=== PATIENT | female | born 1945 | race Caucasian/White ===

== ENCOUNTER 2017-11-20 15:45 | Inpatient (IN) | payer MEDICARE, MEDICAID ==
[2017-11-20 16:12] LABS: % BASOPHILS 1.1 % (0.0-2.0); % EOSINOPHILS 1.7 % (0.0-5.0); % LYMPHOCYTES 26.1 % (20.0-50.0); % NEUTROPHILS 64.1 % (40.0-80.0); BASOPHILE ABSOLUTE 0.1 Th/cumm (0-0.2); EOSINOPHILE ABSOLUTE 0.1 Th/cmm (0.1-0.4); HEMATOCRIT 38.7 % (41.0-60); HEMOGLOBIN 12.9 gm/dL (12-16); LYMPHOCYTE ABSOLUTE 1.6 Th/cmm (1.5-3.0); MEAN CELL VOLUME 78.5 fl (81-100); MEAN CORPUSCULAR HEMOGLOBIN 26.1 pg (27.0-31.0); MEAN CORPUSCULAR HGB CONC 33.2 pg (28.0-36.0); MEAN PLATELET VOLUME 8.9 fl; MONOCYTE ABSOLUTE 0.4 Th/cmm (0.3-1.0); NEUTROPHILE ABSOLUTE 3.9 Th/cmm (1.8-8.0); PLATELET COUNT 268 Th/cmm (150-400); RED BLOOD COUNT 4.94 Mil/cmm (3.80-5.20); WHITE BLOOD COUNT 6.1 Th/cmm (4.8-10.8)
--- NOTE | 2017-11-20 16:13 | ED Physician Chart ---
ED Chief Complaint/HPI - Patient Information Date Seen:: 11/20/17 Time Seen:: 15:50 Chief Complaint:: headache and diffuse myalgias History of Present Illness:: The last 2 weeks patient has been complaining of headaches and diffuse myalgia. No recent head trauma. Patient's also been more agitated lately and was sent here for medical clearance for admission to [facility]. Historian:: Family Member Review:: Nurse's Note Reviewed ED Review of Systems - Review of Systems General/Constitutional: No fever, No chills, No weight loss, No weakness, No diaphoresis, No edema, No loss of appetite Skin: No skin lesions, No rash, No bruising Head: No headache, No light-headedness Eyes: No loss of vision, No pain, No diplopia ENT: No earache, No nasal drainage, No sore throat, No tinnitus Neck: No neck pain, No swelling, No thyromegaly, No stiffness, No mass noted Cardio Vascular: No chest pain, No palpitations, No PND, No orthopnea, No edema Pulmonary: No SOB, No cough, No sputum, No wheezing GI: No nausea, No vomiting, No diarrhea, No pain, No melena, No hematochezia, No constipation, No hematemesis G/U: No dysuria, No frequency, No hematuria Musculoskeletal: Bone or joint pain Endocrine: No polyuria, No polydipsia Psychiatric: No prior psych history, No depression, No anxiety, No suicidal ideation Hematopoietic: No bruising, No lymphadenopathy Allergic/Immuno: No urticaria, No angioedema Neurological: No syncope, No focal symptoms, No weakness, No paresthesia, Headache, No seizure, No dizziness, No confusion, No vertigo ED Past Medical History - Past Medical History Past Medical History: HTN, DM Social History: Non Smoker, No Alcohol Surgical History: other (left knee) Medication: Reviewed ED Physical Exam - Physical Examination General/Constitutional: Awake, Well-developed, well-nourished, Alert, No distress, Non-toxic appearing, Ambulatory Head: Atraumatic Eyes: Lids, conjuctiva normal Other Eyes comments:: Right pupil irregular Skin: Nl inspection, No rash, No skin lesions, No ecchymosis, Well hydrated, No lymphadenopathy ENMT: External ears, nose nl, Nasal exam nl Other ENMT comments:: Edentulous Neck: Nontender, Full ROM w/o pain, No JVD, No nuchal rigidity, No bruit, No mass, No stridor Respiratory: Nl effort/Exclusion, Clear to Auscultation, No Wheeze/Rhonchi/Rales Cardio Vascular: RRR, No murmur, gallop, rubs, NL S1 S2 GI: No tenderness/rebounding/guarding, No organomegaly, No hernia, Normal BS's, Nondistended, No mass/bruits, No McBurney tenderness : No CVA tenderness Extremities: No tenderness or effusion, Full ROM, normal strength in all extremities, No edema, Normal digits & nails Neuro/Psych: No focal deficits Other Neuro/Psych comments:: Alert and apparently confused Misc: Normal back, No paraspinal tenderness ED Labs/Radiology/EKG Results - Lab Results Results: Laboratory Results - last 24 hr 11/20/17 11/20/17 16:05 16:05 WBC 6.1 RBC 4.94 Hgb 12.9 Hct 38.7 L MCV 78.5 L MCH 26.1 L MCHC Differential 33.2 RDW 14.0 Plt Count 268 MPV 8.9 Neutrophils % 64.1 Lymphocytes % 26.1 Monocytes % 7.0 Eosinophils % 1.7 Basophils % 1.1 Sodium 132 L Potassium 4.2 Chloride 96 L Carbon Dioxide 25.5 Anion Gap 14.7 BUN 12 Creatinine 0.6 Est GFR ( Amer) TNP Est GFR (Non-Af Amer) TNP BUN/Creatinine Ratio 20.0 Glucose 444 H Calcium 9.8 Total Bilirubin 0.3 AST 39 ALT 22 Alkaline Phosphatase 69 Total Protein 6.7 Albumin 4.4 Globulin 2.3 Albumin/Globulin Ratio 1.9 H Triglycerides 390 H Cholesterol 172 LDL Cholesterol Direct 91 HDL Cholesterol 53 - Radiology Results Results: CT head showed no acute disease - EKG Interpretations Rate & Rhythm: normal sinus rhythm with a rate of 85 Mineral: normal axis ED Septic Shock - . Is Septic Shock (SBP<90, OR Lactate>4 mmol\L) present?: No ED Reassessment (Disposition) - Reassessment Reassessment Condition:: Unchanged - Diagnosis Diagnosis:: Dementia with agitation; hyperglycemia; diabetes - Patient Disposition Admitted to:: [facility] Admitting Medical Physician:: Nagasamura S. Paras Admitting Psych Physician:: Maribeth Ellington Condition at Disposition:: Stable
[2017-11-20 16:41] LABS: ALB/GLOB RATIO 1.9 (1.0-1.8); ALBUMIN 4.4 gm/dL (3.7-5.3); ALKALINE PHOSPHATASE 69 U/L (34-104); ANION GAP 14.7 (7.0-16.0); BILIRUBIN,TOTAL 0.3 mg/dL (0.3-1.0); BUN - UREA NITROGEN 12 mg/dL (7-25); CALCIUM SERUM 9.8 mg/dL (8.6-10.3); CARBON DIOXIDE 25.5 mEq/L (21.0-31.0); CHLORIDE 96 mEq/L (98-107); CHOLESTEROL 172 mg/dL (<200); CREATININE - SERUM 0.6 mg/dL (0.6-1.2); GLUCOSE 444 mg/dL (70-105); HDL -HIGH DENSITY LIPOPROTEIN 53 mg/dL (23-92); POTASSIUM SERUM 4.2 mEq/L (3.5-5.1); SGOT 39 U/L (13-39); SGPT/ALT 22 U/L (7-52); SODIUM SERUM 132 mEq/L (136-145); TOTAL PROTEIN,SERUM 6.7 gm/dL (6.0-8.3); TRIGLYCERIDES 390 mg/dL (<150)
[2017-11-20] MEDS ORDERED: INSULIN HUMAN REGULAR 100 UNITS/ML UNIT ONE (16:51)
[2017-11-20] MEDS ORDERED: Sodium Chloride 0.9% 1,000 ML IV ONE (16:51)
[2017-11-20] MEDS ORDERED: INSULIN HUMAN REGULAR 100 UNITS/ML UNIT IV ONE (16:52)
[2017-11-20] MEDS ORDERED: INSULIN HUMAN REGULAR 100 UNITS/ML UNIT SUBQ ONE (16:52)
[2017-11-20 19:27] LABS: URINE SOURCE CLEAN C
[2017-11-20 19:33] LABS: URINE BILIRUBIN NEGATIVE (NEGATIVE); URINE BLOOD NEGATIVE (NEGATIVE); URINE GLUCOSE (UA) >=1000 mg/dL (NEGATIVE); URINE KETONE NEGATIVE (NEGATIVE); URINE LEUKOCYTE ESTERASE NEGATIVE (NEGATIVE); URINE NITRATE NEGATIVE (NEGATIVE); URINE PH 5.5 (4.6 - 8.0); URINE PROTEIN NEGATIVE (NEGATIVE); URINE UROBILINOGEN 0.2 E.U./dL (0.2 - 1.0)
[2017-11-20 19:50] LABS: URINE CLARITY CLEAR (CLEAR); URINE COLOR YELLOW
[2017-11-20 19:54] LABS: URINE BACTERIA NONE SEEN /hpf (NONE SEEN); URINE EPITHELIAL CELLS OCCASIONAL /lpf (FEW); URINE MICROSCOPIC INDICATED? YES; URINE RBC 0-2 /hpf (0-5); URINE WBC 0-2 /hpf (0-5)
[2017-11-20 21:52] LABS: A1C % 8.9 % (4.0-6.0)
[2017-11-20 22:26] VITALS: BP 151/95
[2017-11-20] MEDS ORDERED: Maalox 30 mL Cup PO PRN (22:35)
[2017-11-20] MEDS ORDERED: Magnesium Hydroxide (MOM) 30 mL UDC PO PRN (22:35)
[2017-11-21] MEDS: Multivitamin Tab PO SCH (08:37)
--- NOTE | 2017-11-21 08:41 | Diagnostic Imaging Report ---
CT scan of the brain without intravenous contrast HISTORY: Stroke, CVA Total DLP equals 518 CTDI equals 29.7 Axial sections were obtained from the base of the skull to the vertex. There is prominence/enlargement of the ventricular system size. Associated enlargement of cerebral sulci and subarachnoid cisterns. Findings are consistent with changes of generalized cerebral atrophy. No acute parenchymal abnormalities. No acute cerebral hemorrhage. Hypodensity is seen within the supratentorial white matter regions without mass effect. The findings may be associated with chronic small vessel ischemic disease. No extra-axial masses or abnormal fluid collections. Atherosclerotic calcification seen in the region of the vertebral arteries at the base of the skull. IMPRESSION: 1. No acute abnormalities 2. Cerebral atrophy 3. Supratentorial white matter changes that may reflect chronic small vessel ischemic disease 3. Atherosclerotic vascular changes
[2017-11-22] MEDS: Multivitamin Tab PO SCH (08:52)
--- NOTE | 2017-11-22 20:13 | History & Physical ---
ADMIT DATE: 11/20/2017 CHIEF COMPLAINT: Agitation. HISTORY OF PRESENT ILLNESS: This is a 72-year-old female, who was brought in by family members at the Emergency Room due to increase in agitation and confusion. No trauma noted. REVIEW OF SYSTEMS: GENERAL: This is a 72-year-old female that appears as stated, no fever, no chills. HEAD: No headache. No dizziness. EYES: No eye pain, no blurring of vision. NECK: No neck pain, no nuchal rigidity. CHEST: No chest pain. No palpitation. PULMONARY: No shortness of breath, no cough. GASTROINTESTINAL: No diarrhea. Positive for abdominal pain. MUSCULOSKELETAL: No muscle pain or joint pain. PAST MEDICAL HISTORY: Includes hypertension and diabetes. PAST SURGICAL HISTORY: Left knee surgery, unknown procedure. SOCIAL HISTORY: The patient lives with family prior to hospitalization. FAMILY HISTORY: Unremarkable. PHYSICAL EXAMINATION: VITAL SIGNS: Temperature 97.3, heart rate of 68, blood pressure of 151/92, respiration of 18, 94% on room air. GENERAL: This is a 72-year-old female, in no acute distress. HEENT: Head is atraumatic, normocephalic. Eyes: Bilateral conjunctivae are clear. Bilateral pupils are equally round and reactive. NECK: Supple. No JVD. CARDIOVASCULAR: S1 and S2, without murmur. PULMONARY: Clear to auscultation. GASTROINTESTINAL: Soft and nontender without guarding. Positive bowel sounds. MUSCULOSKELETAL: No clubbing. No cyanosis noted. ASSESSMENT: 1. Dementia. 2. Diabetes. 3. Osteoarthritis. PLAN: We will admit the patient to senior mental health unit. We will follow up with a psychiatrist to monitor the patient's condition and behavior. Treatment plans were discussed with the patient's nurse. Treatment plans were discussed with Dr. Crain. We will do medication reconciliation accordingly. JOB# [id number]
--- NOTE | 2017-11-22 22:41 | Psychosocial Evaluation ---
DATE OF SERVICE: PSYCHIATRIC INITIAL EVALUATION AND MENTAL STATUS EXAM AGE: 72. SEX: Female. PHYSICIAN: Maribeth Ellington MD, MPH CHIEF COMPLAINT: Agitation and confusion. HISTORY OF PRESENT ILLNESS: The patient is a 72-year-old female who was brought in to the hospital from home because of increased agitation and confusion. The patient has been having difficulty sleeping at night and has been having confusion and irritability. The patient also has been easily agitated. Chart reviewed and patient interviewed and discussed the patient's condition with the staff. After admission, the patient is not able to stop talking and the patient has been talking nonstop and did not sleep at all last night. The patient also has been in irritable mood and has been preoccupied with "my money." The patient continued to ask about money and not able to explain what exactly her concern about her money. The patient came in with no money, but she is paranoid, thinking that people has been stealing her money. The patient also has been anxious and has been nervous and in a depressed mood. She also is easily agitated and irritable. Also, the patient has been preoccupied about her money and her thought processes has been circumstantial with flight of ideas. PAST PSYCHIATRIC HISTORY: The patient has history of what seems to be dementia and psychosis, but no actual treatment and no medications given to the patient. PAST MEDICAL HISTORY: The patient has diabetes mellitus, hypertension, hyperlipidemia and anemia. SOCIAL HISTORY: The patient lives with her family. The patient has 1 daughter and 1 son. No known alcohol or drug use. ALLERGIES: No known allergies. MENTAL STATUS EXAMINATION: The patient appears her stated age. Disheveled. Hyperverbal and talking nonstop during my interview. The patient is also preoccupied with her money and she continuously asking about her money. The patient did not answer question regarding hallucinations or delusions, but seems to be paranoid and delusional, especially when talking about money. The patient denied thoughts to suicide or homicide. The patient is alert and oriented to the situation, but not to the date or time or place. Impaired immediate and recent memory, but intact remote memory and she remembered her date. Poor insight and poor judgment. She seems to be of average intelligence based on her verbal ability. ASSESSMENT: PRIMARY DIAGNOSIS: Unspecified psychosis. SECONDARY DIAGNOSES: Dementia, moderate to severe, with psychotic features. TREATMENT PLAN: We will monitor the patient's behavior and condition closely. We will start the patient on Abilify and we will adjust the dose. Also, we will work on behavioral modification and evaluate the severity of the patient's dementia. Also, we will check with family in regard to discharge plans and any possible placement issue. ESTIMATED LENGTH OF STAY: 5-7 days. THE PATIENT'S STRENGTHS AND WEAKNESSES: The patient has supportive family and she seems to be in relatively fair health. Weakness is her psychosis and agitation. AFTER DISCHARGE PLAN: Outpatient treatment and followup. We will continue as an outpatient and placement depends on discharge plans. CRITERIA FOR DISCHARGE: The patient will be less agitated and less irritable and will stabilize psychotropic medications and will establish outpatient treatment plans. JOB# [id number]
--- NOTE | 2017-11-22 23:22 | Progress Notes ---
DATE: 11/22/2017 SUBJECTIVE: The patient is currently in the hospital, seen today 11/22/2017, under the care of Dr. Ellington. The patient noted to be hyperverbal, wandering, not sleeping, agitated, difficult to redirect. The patient has apparently been complaining of headaches, diffuse myalgia, more agitated as of late, unable to be cared for at a lower level of care. Staff noting a very poor sleep, wandering preoccupied, focused on losing money, labile, confused at times. Medications were noted including doses and frequencies. ASSESSMENT: The patient remains symptomatic, confused, wandering behaviors. PLAN: We will continue to monitor. We will adjust her medications, address insomnia. Given her ongoing symptoms, there are ongoing safety concerns, history of agitation as well. She is currently in the hospital. JOB# [id number]
[2017-11-23] MEDS: INSULIN ASPART SLIDING SCALE 100 UNITS/ML UNIT SUBQ SCH ×5 (07:30→20:22)
--- NOTE | 2017-11-23 07:40 | Progress Notes ---
DATE: 11/23/2017 SUBJECTIVE: The patient noted to be yelling, verbal, screaming at me, noted to be in a Autumn chair, stating "The people do not know nothing" noted to be more agitated as well, unable to be cared for lower level of care. Staff noting she wanders at times, highly preoccupied, also as noted fairly poor sleep, still focused on losing money, labile. Daughter is involved. The patient is coming from an outside facility and diagnosed with dementia. ASSESSMENT: The patient remains confused, yelling, screaming, at times, argumentative, wandering behaviors. PLAN: We will continue to monitor. We will titrate and adjust medications. The patient may need a medication adjustment to address for sleep. [facility]# [id number]
[2017-11-23] MEDS: Multivitamin Tab PO SCH (09:19)
--- NOTE | 2017-11-23 12:02 | General Progress Note ---
Subjective - Review of Systems Events since last encounter: patient awake confused irritable Objective - Results Result Diagrams: 11/20/17 16:05 11/20/17 16:05 Recent Labs: Laboratory Last Values WBC 6.1 Th/cmm (4.8-10.8) 11/20/17 16:05 RBC 4.94 Mil/cmm (3.80-5.20) 11/20/17 16:05 Hgb 12.9 gm/dL (12-16) 11/20/17 16:05 Hct 38.7 % (41.0-60) L 11/20/17 16:05 MCV 78.5 fl (81-100) L 11/20/17 16:05 MCH 26.1 pg (27.0-31.0) L 11/20/17 16:05 MCHC Differential 33.2 pg (28.0-36.0) 11/20/17 16:05 RDW 14.0 % (11.5-20.0) 11/20/17 16:05 Plt Count 268 Th/cmm (150-400) 11/20/17 16:05 MPV 8.9 fl 11/20/17 16:05 Neutrophils % 64.1 % (40.0-80.0) 11/20/17 16:05 Lymphocytes % 26.1 % (20.0-50.0) 11/20/17 16:05 Monocytes % 7.0 % (2.0-10.0) 11/20/17 16:05 Eosinophils % 1.7 % (0.0-5.0) 11/20/17 16:05 Basophils % 1.1 % (0.0-2.0) 11/20/17 16:05 Sodium 132 mEq/L (136-145) L 11/20/17 16:05 Potassium 4.2 mEq/L (3.5-5.1) 11/20/17 16:05 Chloride 96 mEq/L (98-107) L 11/20/17 16:05 Carbon Dioxide 25.5 mEq/L (21.0-31.0) 11/20/17 16:05 Anion Gap 14.7 (7.0-16.0) 11/20/17 16:05 BUN 12 mg/dL (7-25) 11/20/17 16:05 Creatinine 0.6 mg/dL (0.6-1.2) 11/20/17 16:05 Est GFR ( Amer) TNP 11/20/17 16:05 Est GFR (Non-Af Amer) TNP 11/20/17 16:05 BUN/Creatinine Ratio 20.0 11/20/17 16:05 Glucose 444 mg/dL (70-105) H 11/20/17 16:05 POC Glucose 180 MG/DL (70 - 105) H 11/23/17 11:31 Hemoglobin A1c % 8.9 % (4.0-6.0) H 11/20/17 16:05 Calcium 9.8 mg/dL (8.6-10.3) 11/20/17 16:05 Total Bilirubin 0.3 mg/dL (0.3-1.0) 11/20/17 16:05 AST 39 U/L (13-39) 11/20/17 16:05 ALT 22 U/L (7-52) 11/20/17 16:05 Alkaline Phosphatase 69 U/L (34-104) 11/20/17 16:05 Total Protein 6.7 gm/dL (6.0-8.3) 11/20/17 16:05 Albumin 4.4 gm/dL (3.7-5.3) 11/20/17 16:05 Globulin 2.3 gm/dL 11/20/17 16:05 Albumin/Globulin Ratio 1.9 (1.0-1.8) H 11/20/17 16:05 Triglycerides 390 mg/dL (<150) H 11/20/17 16:05 Cholesterol 172 mg/dL (<200) 11/20/17 16:05 LDL Cholesterol Direct 91 mg/dL (75-193) 11/20/17 16:05 HDL Cholesterol 53 mg/dL (23-92) 11/20/17 16:05 TSH 0.72 uIU/ml (0.34-5.60) 11/20/17 16:05 Urine Source CLEAN C 11/20/17 18:04 Urine Color YELLOW 11/20/17 18:04 Urine Clarity CLEAR (CLEAR) 11/20/17 18:04 Urine pH 5.5 (4.6 - 8.0) 11/20/17 18:04 Ur Specific [place] 1.015 (1.005-1.030) 11/20/17 18:04 Urine Protein NEGATIVE mg/dL (NEGATIVE) 11/20/17 18:04 Urine Glucose (UA) >=1000 mg/dL (NEGATIVE) H 11/20/17 18:04 Urine Ketones NEGATIVE mg/dL (NEGATIVE) 11/20/17 18:04 Urine Blood NEGATIVE (NEGATIVE) 11/20/17 18:04 Urine Nitrate NEGATIVE (NEGATIVE) 11/20/17 18:04 Urine Bilirubin NEGATIVE (NEGATIVE) 11/20/17 18:04 Urine Urobilinogen 0.2 E.U./dL (0.2 - 1.0) 11/20/17 18:04 Ur Leukocyte Esterase NEGATIVE (NEGATIVE) 11/20/17 18:04 Urine RBC 0-2 /hpf (0-5) 11/20/17 18:04 Urine WBC 0-2 /hpf (0-5) 11/20/17 18:04 Ur Epithelial Cells OCCASIONAL /lpf (FEW) 11/20/17 18:04 Urine Bacteria NONE SEEN /hpf (NONE SEEN) 11/20/17 18:04 RPR NONREACTIVE (NONREACTIVE) 11/20/17 16:05 - Physical Exam Vitals and I&O: Vital Signs Temp 97.6 F 11/23/17 05:39 Pulse 84 11/23/17 05:39 Resp 18 11/23/17 05:39 BP 146/82 11/23/17 05:39 Pulse Ox 95 11/23/17 05:39 Intake & Output 11/22/17 11/23/17 11/23/17 18:59 06:59 18:59 Intake Total 850 Balance 850 Intake: Oral 850 Other: # Voids 3 # Bowel Movements 1 Active Medications: Current Medications Acetaminophen (Tylenol) 650 mg PO Q4HR PRN PRN Reason: Mild Pain / Temp above 100 Stop: 01/19/18 22:34 Al Hydrox/Mg Hydrox/Simethicone (Maalox) 30 ml PO Q4HR PRN PRN Reason: GI DISTRESS Stop: 01/19/18 22:34 Aripiprazole (Abilify) 2 mg PO DAILY PAUL; Protocol Stop: 01/20/18 08:59 Last Admin: 11/23/17 09:21 Dose: 2 mg Glipizide (Glucotrol) 5 mg PO BID [facility] Stop: 01/20/18 08:59 Last Admin: 11/23/17 09:20 Dose: 5 mg Insulin Aspart (Novolog Insulin Sliding Scale) 0 units SUBQ ACHS PAUL; Protocol Stop: 01/22/18 07:29 Last Admin: 11/23/17 11:46 Dose: 2 units Lorazepam (Ativan) 0.5 mg PO Q4HR PRN; Protocol PRN Reason: Anxiety Stop: 12/20/17 19:29 Last Admin: 11/22/17 18:38 Dose: 0.5 mg Magnesium Hydroxide (Milk Of Magnesia) 30 ml PO HS PRN PRN Reason: Constipation Metformin HCl (Glucophage) 500 mg PO BID PAUL Stop: 01/20/18 08:59 Last Admin: 11/23/17 09:19 Dose: 500 mg Multivitamins/Vitamin C (Theragran) 1 tab PO DAILY PAUL Stop: 01/20/18 08:59 Last Admin: 11/23/17 09:19 Dose: 1 tab Trazodone HCl (Desyrel) 75 mg PO HS PRN; Protocol PRN Reason: Insomnia Stop: 01/21/18 20:59 General: No acute distress HEENT: Atraumatic, PERRLA Neck: Supple, JVD Cardiovascular: Regular rate, Normal S1, Normal S2 Assessment/Plan - Plan Plan: as per order sheet Nutritional Asmnt/Malnutr-PDOC - Dietary Evaluation Malnutrition Findings (Please click <Entered> for more info): Nutritional Asmnt/Malnutrition Start: 11/21/17 13: 59 Text: Status: Complete Freq: Protocol: Document 11/21/17 13:59 LCHENG (Rec: 11/21/17 14:16 LCHENG [id number]) Nutritional Asmnt/Malnutrition Patient General Information Nutritional Screening High Risk Diagnosis dementai with agitation Pertinent Medical Hx/Surgical Hx HTN, DM, left knee surgery Subjective Information BS 444 at admission noted. Pt seen walking in dining room, confused. Not able to provide nutrition education d/t pt mental status. Per POULTRY HUSBANDMAN, pt consumed 60% of breakfast this morning. Current Diet Order/ Nutrition Support CCHO Pertinent Medications glucotrol, glucophage, theragran Pertinent Labs 11/20 Na 132, Cl 96, glucose 444 , POC 167-368, A1c 8.9 Nutritional Hx/Data Height 1.5 m Height (Calculated Centimeters) 149.9 Current Weight (lbs) 54.431 kg Weight (Calculated Kilograms) 54.4 Weight (Calculated Grams) 18160.1 [place] Body Weight 98 Body Mass Index (BMI) 24.2 Weight Status Approriate GI Symptoms GI Symptoms None Last BM not indicated Difficult in: None Skin Integrity/Comment: intact Estimated Nutritional Goals BEE in Kcals: Using Current wt Calories/Kcals/Kg 25-30 Kcals Calculated 1246-1456 Protein: Using Current wt Protein g/k-1.2 Protein Calculated 55-66 Fluid: ml 1375-1650ml (1ml/kcal) Nutritional Problem 1. Problem Problem altered nutrition related labs Etiology hx of Dm Signs/Symptoms: glucose 444, POC 167-368, A1c 8.9 Malnutrition Alert Is there a minimum of two criteria No selected? Query Text:Check all the applicable criteria. A minimum of two criteria are recommended for diagnosis of either severe or non-severe malnutrition. Malnutrition Related to Morbid Obesity Malnutrition related to morbid obesity No Intervention/Recommendation Comments 1. Continue with [facility] diet as ordered. 2. Monitor PO intake, wt, labs and skin integrity 3. F/U as moderate risk in 3-5 days, 11/24-11/26 Expected Outcomes/Goals Expected Outcomes/Goals 1. PO intake to meet at least 75% of nutritional needs. 2. Wt stability, skin to remain intact, labs to approach WNL.
[2017-11-24] MEDS: INSULIN ASPART SLIDING SCALE 100 UNITS/ML UNIT SUBQ SCH ×4 (06:41→20:17)
[2017-11-24] MEDS: Multivitamin Tab PO SCH (08:32)
--- NOTE | 2017-11-24 15:00 | General Progress Note ---
Subjective - Review of Systems Events since last encounter: patient still confused agitated at times no signs of pain Objective - Results Result Diagrams: 11/20/17 16:05 11/20/17 16:05 Recent Labs: Laboratory Last Values WBC 6.1 Th/cmm (4.8-10.8) 11/20/17 16:05 RBC 4.94 Mil/cmm (3.80-5.20) 11/20/17 16:05 Hgb 12.9 gm/dL (12-16) 11/20/17 16:05 Hct 38.7 % (41.0-60) L 11/20/17 16:05 MCV 78.5 fl (81-100) L 11/20/17 16:05 MCH 26.1 pg (27.0-31.0) L 11/20/17 16:05 MCHC Differential 33.2 pg (28.0-36.0) 11/20/17 16:05 RDW 14.0 % (11.5-20.0) 11/20/17 16:05 Plt Count 268 Th/cmm (150-400) 11/20/17 16:05 MPV 8.9 fl 11/20/17 16:05 Neutrophils % 64.1 % (40.0-80.0) 11/20/17 16:05 Lymphocytes % 26.1 % (20.0-50.0) 11/20/17 16:05 Monocytes % 7.0 % (2.0-10.0) 11/20/17 16:05 Eosinophils % 1.7 % (0.0-5.0) 11/20/17 16:05 Basophils % 1.1 % (0.0-2.0) 11/20/17 16:05 Sodium 132 mEq/L (136-145) L 11/20/17 16:05 Potassium 4.2 mEq/L (3.5-5.1) 11/20/17 16:05 Chloride 96 mEq/L (98-107) L 11/20/17 16:05 Carbon Dioxide 25.5 mEq/L (21.0-31.0) 11/20/17 16:05 Anion Gap 14.7 (7.0-16.0) 11/20/17 16:05 BUN 12 mg/dL (7-25) 11/20/17 16:05 Creatinine 0.6 mg/dL (0.6-1.2) 11/20/17 16:05 Est GFR ( Amer) TNP 11/20/17 16:05 Est GFR (Non-Af Amer) TNP 11/20/17 16:05 BUN/Creatinine Ratio 20.0 11/20/17 16:05 Glucose 444 mg/dL (70-105) H 11/20/17 16:05 POC Glucose 203 MG/DL (70 - 105) H 11/24/17 12:00 Hemoglobin A1c % 8.9 % (4.0-6.0) H 11/20/17 16:05 Calcium 9.8 mg/dL (8.6-10.3) 11/20/17 16:05 Total Bilirubin 0.3 mg/dL (0.3-1.0) 11/20/17 16:05 AST 39 U/L (13-39) 11/20/17 16:05 ALT 22 U/L (7-52) 11/20/17 16:05 Alkaline Phosphatase 69 U/L (34-104) 11/20/17 16:05 Total Protein 6.7 gm/dL (6.0-8.3) 11/20/17 16:05 Albumin 4.4 gm/dL (3.7-5.3) 11/20/17 16:05 Globulin 2.3 gm/dL 11/20/17 16:05 Albumin/Globulin Ratio 1.9 (1.0-1.8) H 11/20/17 16:05 Triglycerides 390 mg/dL (<150) H 11/20/17 16:05 Cholesterol 172 mg/dL (<200) 11/20/17 16:05 LDL Cholesterol Direct 91 mg/dL (75-193) 11/20/17 16:05 HDL Cholesterol 53 mg/dL (23-92) 11/20/17 16:05 TSH 0.72 uIU/ml (0.34-5.60) 11/20/17 16:05 Urine Source CLEAN C 11/20/17 18:04 Urine Color YELLOW 11/20/17 18:04 Urine Clarity CLEAR (CLEAR) 11/20/17 18:04 Urine pH 5.5 (4.6 - 8.0) 11/20/17 18:04 Ur Specific [place] 1.015 (1.005-1.030) 11/20/17 18:04 Urine Protein NEGATIVE mg/dL (NEGATIVE) 11/20/17 18:04 Urine Glucose (UA) >=1000 mg/dL (NEGATIVE) H 11/20/17 18:04 Urine Ketones NEGATIVE mg/dL (NEGATIVE) 11/20/17 18:04 Urine Blood NEGATIVE (NEGATIVE) 11/20/17 18:04 Urine Nitrate NEGATIVE (NEGATIVE) 11/20/17 18:04 Urine Bilirubin NEGATIVE (NEGATIVE) 11/20/17 18:04 Urine Urobilinogen 0.2 E.U./dL (0.2 - 1.0) 11/20/17 18:04 Ur Leukocyte Esterase NEGATIVE (NEGATIVE) 11/20/17 18:04 Urine RBC 0-2 /hpf (0-5) 11/20/17 18:04 Urine WBC 0-2 /hpf (0-5) 11/20/17 18:04 Ur Epithelial Cells OCCASIONAL /lpf (FEW) 11/20/17 18:04 Urine Bacteria NONE SEEN /hpf (NONE SEEN) 11/20/17 18:04 RPR NONREACTIVE (NONREACTIVE) 11/20/17 16:05 - Physical Exam Vitals and I&O: Vital Signs Temp 97.8 F 11/24/17 06:23 Pulse 90 11/24/17 06:23 Resp 19 11/24/17 08:00 BP 142/76 11/24/17 06:23 Pulse Ox 97 11/24/17 06:23 Intake & Output 11/23/17 11/24/17 11/24/17 18:59 06:59 18:59 Intake Total 900 300 Balance 900 300 Intake: Oral 900 300 Other: # Voids 3 1 # Bowel Movements 0 Active Medications: Current Medications Acetaminophen (Tylenol) 650 mg PO Q4HR PRN PRN Reason: Mild Pain / Temp above 100 Stop: 01/19/18 22:34 Al Hydrox/Mg Hydrox/Simethicone (Maalox) 30 ml PO Q4HR PRN PRN Reason: GI DISTRESS Stop: 01/19/18 22:34 Aripiprazole (Abilify) 2 mg PO DAILY [facility]; Protocol Stop: 01/20/18 08:59 Last Admin: 11/24/17 08:32 Dose: 2 mg Glipizide (Glucotrol) 5 mg PO BID [facility] Stop: 01/20/18 08:59 Last Admin: 11/24/17 08:32 Dose: 5 mg Insulin Aspart (Novolog Insulin Sliding Scale) 0 units SUBQ ACHS [facility]; Protocol Stop: 01/22/18 07:29 Last Admin: 11/24/17 12:43 Dose: 4 units Lorazepam (Ativan) 0.5 mg PO Q4HR PRN; Protocol PRN Reason: Anxiety Stop: 12/20/17 19:29 Last Admin: 11/23/17 14:43 Dose: 0.5 mg Magnesium Hydroxide (Milk Of Magnesia) 30 ml PO HS PRN PRN Reason: Constipation Metformin HCl (Glucophage) 500 mg PO BID [facility] Stop: 01/20/18 08:59 Last Admin: 11/24/17 08:32 Dose: 500 mg Multivitamins/Vitamin C (Theragran) 1 tab PO DAILY [facility] Stop: 01/20/18 08:59 Last Admin: 11/24/17 08:32 Dose: 1 tab Trazodone HCl (Desyrel) 75 mg PO HS PRN; Protocol PRN Reason: Insomnia Stop: 01/21/18 20:59 Last Admin: 11/24/17 00:35 Dose: 75 mg General: No acute distress HEENT: Atraumatic, PERRLA Neck: Supple, JVD Cardiovascular: Regular rate, Normal S1, Normal S2 Assessment/Plan - Plan Plan: as per order sheet Nutritional Asmnt/Malnutr-PDOC - Dietary Evaluation Malnutrition Findings (Please click <Entered> for more info): Nutritional Asmnt/Malnutrition Start: 11/21/17 13: 59 Text: Status: Complete Freq: Protocol: Document 11/21/17 13:59 LCHENG (Rec: 11/21/17 14:16 [email or web address] [email or web address]) Nutritional Asmnt/Malnutrition Patient General Information Nutritional Screening High Risk Diagnosis dementai with agitation Pertinent Medical Hx/Surgical Hx HTN, DM, left knee surgery Subjective Information BS 444 at admission noted. Pt seen walking in dining room, confused. Not able to provide nutrition education d/t pt mental status. Per SUBSCRIPTION CLERK, pt consumed 60% of breakfast this morning. Current Diet Order/ Nutrition Support CCHO Pertinent Medications glucotrol, glucophage, theragran Pertinent Labs 11/20 Na 132, Cl 96, glucose 444 , POC 167-368, A1c 8.9 Nutritional Hx/Data Height 1.5 m Height (Calculated Centimeters) 149.9 Current Weight (lbs) 54.431 kg Weight (Calculated Kilograms) 54.4 Weight (Calculated Grams) 94649.1 [place] Body Weight 98 Body Mass Index (BMI) 24.2 Weight Status Approriate GI Symptoms GI Symptoms None Last BM not indicated Difficult in: None Skin Integrity/Comment: intact Estimated Nutritional Goals BEE in Kcals: Using Current wt Calories/Kcals/Kg 25-30 Kcals Calculated 0238-1372 Protein: Using Current wt Protein g/k-1.2 Protein Calculated 55-66 Fluid: ml 1375-1650ml (1ml/kcal) Nutritional Problem 1. Problem Problem altered nutrition related labs Etiology hx of Dm Signs/Symptoms: glucose 444, POC 167-368, A1c 8.9 Malnutrition Alert Is there a minimum of two criteria No selected? Query Text:Check all the applicable criteria. A minimum of two criteria are recommended for diagnosis of either severe or non-severe malnutrition. Malnutrition Related to Morbid Obesity Malnutrition related to morbid obesity No Intervention/Recommendation Comments 1. Continue with [facility] diet as ordered. 2. Monitor PO intake, wt, labs and skin integrity 3. F/U as moderate risk in 3-5 days, 11/24-11/26 Expected Outcomes/Goals Expected Outcomes/Goals 1. PO intake to meet at least 75% of nutritional needs. 2. Wt stability, skin to remain intact, labs to approach WNL.
--- NOTE | 2017-11-24 21:51 | Progress Notes ---
DATE: 11/24/[address] Ellington. SUBJECTIVE: Case was discussed with staff of the patient, reviewed records. This is a 72-year-old female, who was admitted on 11/20/2017 because of agitation and confusion. She has been confused, agitated, having difficulty sleeping at night, has been having confusion and irritability, unable to stop talking. Upon admission, she was manic, paranoid thinking people have been stealing her money, very anxious with a history of what seems to be like dementia and psychosis. The patient continues to be unpredictable, impulsive, and needing redirection. She was started on Abilify 2 mg daily and trazodone 75 mg at bedtime with no side effects, no sedation, no nausea, and no extrapyramidal symptoms. We will continue to work with the patient in group therapy, milieu therapy, and adjust the medications as needed. [facility]# [phone] [id number]
[2017-11-25] MEDS: INSULIN ASPART SLIDING SCALE 100 UNITS/ML UNIT SUBQ SCH ×4 (06:45→20:26)
[2017-11-25] MEDS: Multivitamin Tab PO SCH (10:05)
--- NOTE | 2017-11-25 11:41 | Internal Medicine Prog Note ---
Internal Medicine Subjective - Subjective Service Date: 11/25/17 Patient seen and examined:: with staff Patient is:: awake Per staff patient has:: no adverse event, tolerating meds Internal Medicine Objective - Results Result Diagrams: 11/20/17 16:05 11/20/17 16:05 Recent Labs: Laboratory Last Values WBC 6.1 Th/cmm (4.8-10.8) 11/20/17 16:05 RBC 4.94 Mil/cmm (3.80-5.20) 11/20/17 16:05 Hgb 12.9 gm/dL (12-16) 11/20/17 16:05 Hct 38.7 % (41.0-60) L 11/20/17 16:05 MCV 78.5 fl (81-100) L 11/20/17 16:05 MCH 26.1 pg (27.0-31.0) L 11/20/17 16:05 MCHC Differential 33.2 pg (28.0-36.0) 11/20/17 16:05 RDW 14.0 % (11.5-20.0) 11/20/17 16:05 Plt Count 268 Th/cmm (150-400) 11/20/17 16:05 MPV 8.9 fl 11/20/17 16:05 Neutrophils % 64.1 % (40.0-80.0) 11/20/17 16:05 Lymphocytes % 26.1 % (20.0-50.0) 11/20/17 16:05 Monocytes % 7.0 % (2.0-10.0) 11/20/17 16:05 Eosinophils % 1.7 % (0.0-5.0) 11/20/17 16:05 Basophils % 1.1 % (0.0-2.0) 11/20/17 16:05 Sodium 132 mEq/L (136-145) L 11/20/17 16:05 Potassium 4.2 mEq/L (3.5-5.1) 11/20/17 16:05 Chloride 96 mEq/L (98-107) L 11/20/17 16:05 Carbon Dioxide 25.5 mEq/L (21.0-31.0) 11/20/17 16:05 Anion Gap 14.7 (7.0-16.0) 11/20/17 16:05 BUN 12 mg/dL (7-25) 11/20/17 16:05 Creatinine 0.6 mg/dL (0.6-1.2) 11/20/17 16:05 Est GFR ( Amer) TNP 11/20/17 16:05 Est GFR (Non-Af Amer) TNP 11/20/17 16:05 BUN/Creatinine Ratio 20.0 11/20/17 16:05 Glucose 444 mg/dL (70-105) H 11/20/17 16:05 POC Glucose 250 MG/DL (70 - 105) H 11/24/17 19:56 Hemoglobin A1c % 8.9 % (4.0-6.0) H 11/20/17 16:05 Calcium 9.8 mg/dL (8.6-10.3) 11/20/17 16:05 Total Bilirubin 0.3 mg/dL (0.3-1.0) 11/20/17 16:05 AST 39 U/L (13-39) 11/20/17 16:05 ALT 22 U/L (7-52) 11/20/17 16:05 Alkaline Phosphatase 69 U/L (34-104) 11/20/17 16:05 Total Protein 6.7 gm/dL (6.0-8.3) 11/20/17 16:05 Albumin 4.4 gm/dL (3.7-5.3) 11/20/17 16:05 Globulin 2.3 gm/dL 11/20/17 16:05 Albumin/Globulin Ratio 1.9 (1.0-1.8) H 11/20/17 16:05 Triglycerides 390 mg/dL (<150) H 11/20/17 16:05 Cholesterol 172 mg/dL (<200) 11/20/17 16:05 LDL Cholesterol Direct 91 mg/dL (75-193) 11/20/17 16:05 HDL Cholesterol 53 mg/dL (23-92) 11/20/17 16:05 TSH 0.72 uIU/ml (0.34-5.60) 11/20/17 16:05 Urine Source CLEAN C 11/20/17 18:04 Urine Color YELLOW 11/20/17 18:04 Urine Clarity CLEAR (CLEAR) 11/20/17 18:04 Urine pH 5.5 (4.6 - 8.0) 11/20/17 18:04 Ur Specific [place] 1.015 (1.005-1.030) 11/20/17 18:04 Urine Protein NEGATIVE mg/dL (NEGATIVE) 11/20/17 18:04 Urine Glucose (UA) >=1000 mg/dL (NEGATIVE) H 11/20/17 18:04 Urine Ketones NEGATIVE mg/dL (NEGATIVE) 11/20/17 18:04 Urine Blood NEGATIVE (NEGATIVE) 11/20/17 18:04 Urine Nitrate NEGATIVE (NEGATIVE) 11/20/17 18:04 Urine Bilirubin NEGATIVE (NEGATIVE) 11/20/17 18:04 Urine Urobilinogen 0.2 E.U./dL (0.2 - 1.0) 11/20/17 18:04 Ur Leukocyte Esterase NEGATIVE (NEGATIVE) 11/20/17 18:04 Urine RBC 0-2 /hpf (0-5) 11/20/17 18:04 Urine WBC 0-2 /hpf (0-5) 11/20/17 18:04 Ur Epithelial Cells OCCASIONAL /lpf (FEW) 11/20/17 18:04 Urine Bacteria NONE SEEN /hpf (NONE SEEN) 11/20/17 18:04 RPR NONREACTIVE (NONREACTIVE) 11/20/17 16:05 - Physical Exam Vitals and I&O: Vital Signs Temp 97.6 F 11/25/17 06:22 Pulse 85 11/25/17 06:22 Resp 16 11/25/17 06:22 BP 153/77 11/25/17 06:22 Pulse Ox 98 11/25/17 06:22 Intake & Output 11/24/17 11/25/17 11/25/17 18:59 06:59 18:59 Intake Total 1200 Balance 1200 Intake: Oral 1200 Other: # Voids 4 # Bowel Movements 2 Active Medications: Current Medications Acetaminophen (Tylenol) 650 mg PO Q4HR PRN PRN Reason: Mild Pain / Temp above 100 Stop: 01/19/18 22:34 Al Hydrox/Mg Hydrox/Simethicone (Maalox) 30 ml PO Q4HR PRN PRN Reason: GI DISTRESS Stop: 01/19/18 22:34 Aripiprazole (Abilify) 2 mg PO DAILY [facility]; Protocol Stop: 01/20/18 08:59 Last Admin: 11/25/17 10:05 Dose: 2 mg Glipizide (Glucotrol) 5 mg PO BID [facility] Stop: 01/20/18 08:59 Last Admin: 11/25/17 10:05 Dose: 5 mg Insulin Aspart (Novolog Insulin Sliding Scale) 0 units SUBQ ACHS [facility]; Protocol Stop: 01/22/18 07:29 Last Admin: 11/25/17 06:45 Dose: 2 units Lorazepam (Ativan) 0.5 mg PO Q4HR PRN; Protocol PRN Reason: Anxiety Stop: 12/20/17 19:29 Last Admin: 11/24/17 19:46 Dose: 0.5 mg Magnesium Hydroxide (Milk Of Magnesia) 30 ml PO HS PRN PRN Reason: Constipation Metformin HCl (Glucophage) 500 mg PO BID [facility] Stop: 01/20/18 08:59 Last Admin: 11/25/17 10:05 Dose: 500 mg Multivitamins/Vitamin C (Theragran) 1 tab PO DAILY [facility] Stop: 01/20/18 08:59 Last Admin: 11/25/17 10:05 Dose: 1 tab Trazodone HCl (Desyrel) 75 mg PO HS PRN; Protocol PRN Reason: Insomnia Stop: 01/21/18 20:59 Last Admin: 11/24/17 00:35 Dose: 75 mg General: alert HEENT: NC/AT, PERRLA Neck: Supple Lungs: CTAB Internal Medicine Assmt/Plan - Assessment Assessment: dementia dm oa - Plan Plan: monitor glucose cpm Nutritional Asmnt/Malnutr-PDOC - Dietary Evaluation Malnutrition Findings (Please click <Entered> for more info): Nutritional Asmnt/Malnutrition Start: 11/21/17 13: 59 Text: Status: Complete Freq: Protocol: Document 11/21/17 13:59 LCHENG (Rec: 11/21/17 14:16 LCHENG [email or web address]) Nutritional Asmnt/Malnutrition Patient General Information Nutritional Screening High Risk Diagnosis dementai with agitation Pertinent Medical Hx/Surgical Hx HTN, DM, left knee surgery Subjective Information BS 444 at admission noted. Pt seen walking in dining room, confused. Not able to provide nutrition education d/t pt mental status. Per SUPERVISOR MICROWAVE, pt consumed 60% of breakfast this morning. Current Diet Order/ Nutrition Support CCHO Pertinent Medications glucotrol, glucophage, theragran Pertinent Labs 7/5 Na 132, Cl 96, glucose 444 , POC 167-368, A1c 8.9 Nutritional Hx/Data Height 4 ft 11 in Height (Calculated Centimeters) 149.9 Current Weight (lbs) 120 lb Weight (Calculated Kilograms) 54.4 Weight (Calculated Grams) 29348.1 [place] Body Weight 98 Body Mass Index (BMI) 24.2 Weight Status Approriate GI Symptoms GI Symptoms None Last BM not indicated Difficult in: None Skin Integrity/Comment: intact Estimated Nutritional Goals BEE in Kcals: Using Current wt Calories/Kcals/Kg 25-30 Kcals Calculated 6456-7384 Protein: Using Current wt Protein g/k-1.2 Protein Calculated 55-66 Fluid: ml 1375-1650ml (1ml/kcal) Nutritional Problem 1. Problem Problem altered nutrition related labs Etiology hx of Dm Signs/Symptoms: glucose 444, POC 167-368, A1c 8.9 Malnutrition Alert Is there a minimum of two criteria No selected? Query Text:Check all the applicable criteria. A minimum of two criteria are recommended for diagnosis of either severe or non-severe malnutrition. Malnutrition Related to Morbid Obesity Malnutrition related to morbid obesity No Intervention/Recommendation Comments 1. Continue with [facility] diet as ordered. 2. Monitor PO intake, wt, labs and skin integrity 3. F/U as moderate risk in 3-5 days, 11/24-11/26 Expected Outcomes/Goals Expected Outcomes/Goals 1. PO intake to meet at least 75% of nutritional needs. 2. Wt stability, skin to remain intact, labs to approach WNL.
--- NOTE | 2017-11-25 22:43 | Progress Notes ---
DATE: 11/25/2017 Case was discussed with staff of the patient, reviewed records. The patient continues to be confused, easily agitated, continues to be unpredictable, impulsive, and paranoid at times. Continues to have poor insight. Continues to need redirection. She is compliant with the medication with no side effects, no sedation, no nausea, and no extrapyramidal symptoms. We will continue to work with the patient in group therapy, milieu therapy, and adjust medication as needed. She is sleeping better and eating better. JOB# [id number]
[2017-11-26] MEDS: INSULIN ASPART SLIDING SCALE 100 UNITS/ML UNIT SUBQ SCH ×4 (06:32→21:32)
[2017-11-26] MEDS ORDERED: Haloperidol Lactate 5 mg/mL 1mL Vial ONE (08:42)
[2017-11-26] MEDS ORDERED: Haloperidol Lactate 5 mg/mL 1mL Vial IM ONE (08:53)
[2017-11-26] MEDS: Multivitamin Tab PO SCH (09:01)
--- NOTE | 2017-11-26 13:12 | General Progress Note ---
Subjective - Review of Systems Events since last encounter: confused easily agitated Objective - Results Result Diagrams: 11/20/17 16:05 11/20/17 16:05 Recent Labs: Laboratory Last Values WBC 6.1 Th/cmm (4.8-10.8) 11/20/17 16:05 RBC 4.94 Mil/cmm (3.80-5.20) 11/20/17 16:05 Hgb 12.9 gm/dL (12-16) 11/20/17 16:05 Hct 38.7 % (41.0-60) L 11/20/17 16:05 MCV 78.5 fl (81-100) L 11/20/17 16:05 MCH 26.1 pg (27.0-31.0) L 11/20/17 16:05 MCHC Differential 33.2 pg (28.0-36.0) 11/20/17 16:05 RDW 14.0 % (11.5-20.0) 11/20/17 16:05 Plt Count 268 Th/cmm (150-400) 11/20/17 16:05 MPV 8.9 fl 11/20/17 16:05 Neutrophils % 64.1 % (40.0-80.0) 11/20/17 16:05 Lymphocytes % 26.1 % (20.0-50.0) 11/20/17 16:05 Monocytes % 7.0 % (2.0-10.0) 11/20/17 16:05 Eosinophils % 1.7 % (0.0-5.0) 11/20/17 16:05 Basophils % 1.1 % (0.0-2.0) 11/20/17 16:05 Sodium 132 mEq/L (136-145) L 11/20/17 16:05 Potassium 4.2 mEq/L (3.5-5.1) 11/20/17 16:05 Chloride 96 mEq/L (98-107) L 11/20/17 16:05 Carbon Dioxide 25.5 mEq/L (21.0-31.0) 11/20/17 16:05 Anion Gap 14.7 (7.0-16.0) 11/20/17 16:05 BUN 12 mg/dL (7-25) 11/20/17 16:05 Creatinine 0.6 mg/dL (0.6-1.2) 11/20/17 16:05 Est GFR ( Amer) TNP 11/20/17 16:05 Est GFR (Non-Af Amer) TNP 11/20/17 16:05 BUN/Creatinine Ratio 20.0 11/20/17 16:05 Glucose 444 mg/dL (70-105) H 11/20/17 16:05 POC Glucose 219 MG/DL (70 - 105) H 11/26/17 11:41 Hemoglobin A1c % 8.9 % (4.0-6.0) H 11/20/17 16:05 Calcium 9.8 mg/dL (8.6-10.3) 11/20/17 16:05 Total Bilirubin 0.3 mg/dL (0.3-1.0) 11/20/17 16:05 AST 39 U/L (13-39) 11/20/17 16:05 ALT 22 U/L (7-52) 11/20/17 16:05 Alkaline Phosphatase 69 U/L (34-104) 11/20/17 16:05 Total Protein 6.7 gm/dL (6.0-8.3) 11/20/17 16:05 Albumin 4.4 gm/dL (3.7-5.3) 11/20/17 16:05 Globulin 2.3 gm/dL 11/20/17 16:05 Albumin/Globulin Ratio 1.9 (1.0-1.8) H 11/20/17 16:05 Triglycerides 390 mg/dL (<150) H 11/20/17 16:05 Cholesterol 172 mg/dL (<200) 11/20/17 16:05 LDL Cholesterol Direct 91 mg/dL (75-193) 11/20/17 16:05 HDL Cholesterol 53 mg/dL (23-92) 11/20/17 16:05 TSH 0.72 uIU/ml (0.34-5.60) 11/20/17 16:05 Urine Source CLEAN C 11/20/17 18:04 Urine Color YELLOW 11/20/17 18:04 Urine Clarity CLEAR (CLEAR) 11/20/17 18:04 Urine pH 5.5 (4.6 - 8.0) 11/20/17 18:04 Ur Specific [place] 1.015 (1.005-1.030) 11/20/17 18:04 Urine Protein NEGATIVE mg/dL (NEGATIVE) 11/20/17 18:04 Urine Glucose (UA) >=1000 mg/dL (NEGATIVE) H 11/20/17 18:04 Urine Ketones NEGATIVE mg/dL (NEGATIVE) 11/20/17 18:04 Urine Blood NEGATIVE (NEGATIVE) 11/20/17 18:04 Urine Nitrate NEGATIVE (NEGATIVE) 11/20/17 18:04 Urine Bilirubin NEGATIVE (NEGATIVE) 11/20/17 18:04 Urine Urobilinogen 0.2 E.U./dL (0.2 - 1.0) 11/20/17 18:04 Ur Leukocyte Esterase NEGATIVE (NEGATIVE) 11/20/17 18:04 Urine RBC 0-2 /hpf (0-5) 11/20/17 18:04 Urine WBC 0-2 /hpf (0-5) 11/20/17 18:04 Ur Epithelial Cells OCCASIONAL /lpf (FEW) 11/20/17 18:04 Urine Bacteria NONE SEEN /hpf (NONE SEEN) 11/20/17 18:04 RPR NONREACTIVE (NONREACTIVE) 11/20/17 16:05 - Physical Exam Vitals and I&O: Vital Signs Temp 98.8 F 11/26/17 06:03 Pulse 83 11/26/17 06:03 Resp 20 11/26/17 06:03 BP 159/87 11/26/17 06:03 Pulse Ox 96 11/26/17 06:03 Intake & Output 11/25/17 11/26/17 11/26/17 18:59 06:59 18:59 Intake Total 1600 120 Balance 1600 120 Intake: Oral 1600 120 Other: # Voids 4 1 # Bowel Movements 1 1 Active Medications: Current Medications Acetaminophen (Tylenol) 650 mg PO Q4HR PRN PRN Reason: Mild Pain / Temp above 100 Stop: 01/19/18 22:34 Al Hydrox/Mg Hydrox/Simethicone (Maalox) 30 ml PO Q4HR PRN PRN Reason: GI DISTRESS Stop: 01/19/18 22:34 Aripiprazole (Abilify) 2 mg PO DAILY [facility]; Protocol Stop: 01/20/18 08:59 Last Admin: 11/26/17 09:01 Dose: 2 mg Glipizide (Glucotrol) 5 mg PO BID [facility] Stop: 01/20/18 08:59 Last Admin: 11/26/17 09:01 Dose: 5 mg Insulin Aspart (Novolog Insulin Sliding Scale) 0 units SUBQ ACHS [facility]; Protocol Stop: 01/22/18 07:29 Last Admin: 11/26/17 11:45 Dose: 4 units Lorazepam (Ativan) 0.5 mg PO Q4HR PRN; Protocol PRN Reason: Anxiety Stop: 12/20/17 19:29 Last Admin: 11/26/17 09:01 Dose: 0.5 mg Magnesium Hydroxide (Milk Of Magnesia) 30 ml PO HS PRN PRN Reason: Constipation Metformin HCl (Glucophage) 500 mg PO BID [facility] Stop: 01/20/18 08:59 Last Admin: 11/26/17 09:01 Dose: 500 mg Multivitamins/Vitamin C (Theragran) 1 tab PO DAILY [facility] Stop: 01/20/18 08:59 Last Admin: 11/26/17 09:01 Dose: 1 tab Trazodone HCl (Desyrel) 75 mg PO HS PRN; Protocol PRN Reason: Insomnia Stop: 01/21/18 20:59 Last Admin: 11/24/17 00:35 Dose: 75 mg General: No acute distress HEENT: Atraumatic, PERRLA Neck: Supple, JVD Cardiovascular: Regular rate, Normal S1, Normal S2 Assessment/Plan - Plan Plan: as per order sheet Nutritional Asmnt/Malnutr-PDOC - Dietary Evaluation Malnutrition Findings (Please click <Entered> for more info): Nutritional Asmnt/Malnutrition Start: 11/21/17 13: 59 Text: Status: Complete Freq: Protocol: Document 11/21/17 13:59 LCHENG (Rec: 11/21/17 14:16 LCHENG [email or web address]) Nutritional Asmnt/Malnutrition Patient General Information Nutritional Screening High Risk Diagnosis dementai with agitation Pertinent Medical Hx/Surgical Hx HTN, DM, left knee surgery Subjective Information BS 444 at admission noted. Pt seen walking in dining room, confused. Not able to provide nutrition education d/t pt mental status. Per LEAD SECTION SUPERVISOR, pt consumed 60% of breakfast this morning. Current Diet Order/ Nutrition Support CCHO Pertinent Medications glucotrol, glucophage, theragran Pertinent Labs 11/20 Na 132, Cl 96, glucose 444 , POC 167-368, A1c 8.9 Nutritional Hx/Data Height 1.5 m Height (Calculated Centimeters) 149.9 Current Weight (lbs) 54.431 kg Weight (Calculated Kilograms) 54.4 Weight (Calculated Grams) 42935.1 [place] Body Weight 98 Body Mass Index (BMI) 24.2 Weight Status Approriate GI Symptoms GI Symptoms None Last BM not indicated Difficult in: None Skin Integrity/Comment: intact Estimated Nutritional Goals BEE in Kcals: Using Current wt Calories/Kcals/Kg 25-30 Kcals Calculated 0435-4057 Protein: Using Current wt Protein g/k-1.2 Protein Calculated 55-66 Fluid: ml 1375-1650ml (1ml/kcal) Nutritional Problem 1. Problem Problem altered nutrition related labs Etiology hx of Dm Signs/Symptoms: glucose 444, POC 167-368, A1c 8.9 Malnutrition Alert Is there a minimum of two criteria No selected? Query Text:Check all the applicable criteria. A minimum of two criteria are recommended for diagnosis of either severe or non-severe malnutrition. Malnutrition Related to Morbid Obesity Malnutrition related to morbid obesity No Intervention/Recommendation Comments 1. Continue with [facility] diet as ordered. 2. Monitor PO intake, wt, labs and skin integrity 3. F/U as moderate risk in 3-5 days, 11/24-11/26 Expected Outcomes/Goals Expected Outcomes/Goals 1. PO intake to meet at least 75% of nutritional needs. 2. Wt stability, skin to remain intact, labs to approach WNL.
[2017-11-27] MEDS: INSULIN ASPART SLIDING SCALE 100 UNITS/ML UNIT SUBQ SCH ×5 (06:32→20:41)
[2017-11-27] MEDS: Multivitamin Tab PO SCH (08:42)
--- NOTE | 2017-11-27 16:08 | General Progress Note ---
Subjective - Review of Systems Events since last encounter: patient continues to be confused, and agitated Objective - Results Result Diagrams: 11/20/17 16:05 11/20/17 16:05 Recent Labs: Laboratory Last Values WBC 6.1 Th/cmm (4.8-10.8) 11/20/17 16:05 RBC 4.94 Mil/cmm (3.80-5.20) 11/20/17 16:05 Hgb 12.9 gm/dL (12-16) 11/20/17 16:05 Hct 38.7 % (41.0-60) L 11/20/17 16:05 MCV 78.5 fl (81-100) L 11/20/17 16:05 MCH 26.1 pg (27.0-31.0) L 11/20/17 16:05 MCHC Differential 33.2 pg (28.0-36.0) 11/20/17 16:05 RDW 14.0 % (11.5-20.0) 11/20/17 16:05 Plt Count 268 Th/cmm (150-400) 11/20/17 16:05 MPV 8.9 fl 11/20/17 16:05 Neutrophils % 64.1 % (40.0-80.0) 11/20/17 16:05 Lymphocytes % 26.1 % (20.0-50.0) 11/20/17 16:05 Monocytes % 7.0 % (2.0-10.0) 11/20/17 16:05 Eosinophils % 1.7 % (0.0-5.0) 11/20/17 16:05 Basophils % 1.1 % (0.0-2.0) 11/20/17 16:05 Sodium 132 mEq/L (136-145) L 11/20/17 16:05 Potassium 4.2 mEq/L (3.5-5.1) 11/20/17 16:05 Chloride 96 mEq/L (98-107) L 11/20/17 16:05 Carbon Dioxide 25.5 mEq/L (21.0-31.0) 11/20/17 16:05 Anion Gap 14.7 (7.0-16.0) 11/20/17 16:05 BUN 12 mg/dL (7-25) 11/20/17 16:05 Creatinine 0.6 mg/dL (0.6-1.2) 11/20/17 16:05 Est GFR ( Amer) TNP 11/20/17 16:05 Est GFR (Non-Af Amer) TNP 11/20/17 16:05 BUN/Creatinine Ratio 20.0 11/20/17 16:05 Glucose 444 mg/dL (70-105) H 11/20/17 16:05 POC Glucose 252 MG/DL (70 - 105) H 11/27/17 11:25 Hemoglobin A1c % 8.9 % (4.0-6.0) H 11/20/17 16:05 Calcium 9.8 mg/dL (8.6-10.3) 11/20/17 16:05 Total Bilirubin 0.3 mg/dL (0.3-1.0) 11/20/17 16:05 AST 39 U/L (13-39) 11/20/17 16:05 ALT 22 U/L (7-52) 11/20/17 16:05 Alkaline Phosphatase 69 U/L (34-104) 11/20/17 16:05 Total Protein 6.7 gm/dL (6.0-8.3) 11/20/17 16:05 Albumin 4.4 gm/dL (3.7-5.3) 11/20/17 16:05 Globulin 2.3 gm/dL 11/20/17 16:05 Albumin/Globulin Ratio 1.9 (1.0-1.8) H 11/20/17 16:05 Triglycerides 390 mg/dL (<150) H 11/20/17 16:05 Cholesterol 172 mg/dL (<200) 11/20/17 16:05 LDL Cholesterol Direct 91 mg/dL (75-193) 11/20/17 16:05 HDL Cholesterol 53 mg/dL (23-92) 11/20/17 16:05 TSH 0.72 uIU/ml (0.34-5.60) 11/20/17 16:05 Urine Source CLEAN C 11/20/17 18:04 Urine Color YELLOW 11/20/17 18:04 Urine Clarity CLEAR (CLEAR) 11/20/17 18:04 Urine pH 5.5 (4.6 - 8.0) 11/20/17 18:04 Ur Specific [place] 1.015 (1.005-1.030) 11/20/17 18:04 Urine Protein NEGATIVE mg/dL (NEGATIVE) 11/20/17 18:04 Urine Glucose (UA) >=1000 mg/dL (NEGATIVE) H 11/20/17 18:04 Urine Ketones NEGATIVE mg/dL (NEGATIVE) 11/20/17 18:04 Urine Blood NEGATIVE (NEGATIVE) 11/20/17 18:04 Urine Nitrate NEGATIVE (NEGATIVE) 11/20/17 18:04 Urine Bilirubin NEGATIVE (NEGATIVE) 11/20/17 18:04 Urine Urobilinogen 0.2 E.U./dL (0.2 - 1.0) 11/20/17 18:04 Ur Leukocyte Esterase NEGATIVE (NEGATIVE) 11/20/17 18:04 Urine RBC 0-2 /hpf (0-5) 11/20/17 18:04 Urine WBC 0-2 /hpf (0-5) 11/20/17 18:04 Ur Epithelial Cells OCCASIONAL /lpf (FEW) 11/20/17 18:04 Urine Bacteria NONE SEEN /hpf (NONE SEEN) 11/20/17 18:04 RPR NONREACTIVE (NONREACTIVE) 11/20/17 16:05 - Physical Exam Vitals and I&O: Vital Signs Temp 97.4 F 11/27/17 14:00 Pulse 91 11/27/17 14:00 Resp 18 11/27/17 14:00 BP 175/90 11/27/17 14:00 Pulse Ox 98 11/27/17 14:00 Intake & Output 11/26/17 11/27/17 11/27/17 18:59 06:59 18:59 Other: Stool Characteristics Formed Active Medications: Current Medications Acetaminophen (Tylenol) 650 mg PO Q4HR PRN PRN Reason: Mild Pain / Temp above 100 Stop: 01/19/18 22:34 Last Admin: 11/27/17 08:42 Dose: 650 mg Al Hydrox/Mg Hydrox/Simethicone (Maalox) 30 ml PO Q4HR PRN PRN Reason: GI DISTRESS Stop: 01/19/18 22:34 Aripiprazole (Abilify) 2 mg PO DAILY [facility]; Protocol Stop: 01/20/18 08:59 Last Admin: 11/27/17 08:42 Dose: 2 mg Glipizide (Glucotrol) 5 mg PO BID [facility] Stop: 01/20/18 08:59 Last Admin: 11/27/17 08:41 Dose: 5 mg Insulin Aspart (Novolog Insulin Sliding Scale) 0 units SUBQ ACHS [facility]; Protocol Stop: 01/22/18 07:29 Last Admin: 11/27/17 12:17 Dose: Not Given Lorazepam (Ativan) 0.5 mg PO Q4HR PRN; Protocol PRN Reason: Anxiety Stop: 12/20/17 19:29 Last Admin: 11/26/17 09:01 Dose: 0.5 mg Magnesium Hydroxide (Milk Of Magnesia) 30 ml PO HS PRN PRN Reason: Constipation Metformin HCl (Glucophage) 500 mg PO BID [facility] Stop: 01/20/18 08:59 Last Admin: 11/27/17 08:41 Dose: 500 mg Multivitamins/Vitamin C (Theragran) 1 tab PO DAILY [facility] Stop: 01/20/18 08:59 Last Admin: 11/27/17 08:42 Dose: 1 tab Trazodone HCl (Desyrel) 75 mg PO HS PRN; Protocol PRN Reason: Insomnia Stop: 01/21/18 20:59 Last Admin: 11/24/17 00:35 Dose: 75 mg General: No acute distress HEENT: Atraumatic, PERRLA Neck: Supple, JVD Cardiovascular: Regular rate, Normal S1, Normal S2 Psych/Mental Status: Other (confused) Assessment/Plan - Assessment Assessment: Dementia Type 2 diabetes OA - Plan Plan: as per order sheet Nutritional Asmnt/Malnutr-PDOC - Dietary Evaluation Malnutrition Findings (Please click <Entered> for more info): Nutritional Asmnt/Malnutrition Start: 11/21/17 13: 59 Text: Status: Complete Freq: Protocol: Document 11/21/17 13:59 LCHENG (Rec: 11/21/17 14:16 [email or web address] [email or web address]) Nutritional Asmnt/Malnutrition Patient General Information Nutritional Screening High Risk Diagnosis dementai with agitation Pertinent Medical Hx/Surgical Hx HTN, DM, left knee surgery Subjective Information BS 444 at admission noted. Pt seen walking in dining room, confused. Not able to provide nutrition education d/t pt mental status. 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 Current Diet Order/ Nutrition Support CCHO Pertinent Medications glucotrol, glucophage, theragran Pertinent Labs 11/20 Na 132, Cl 96, glucose 444 , POC 167-368, A1c 8.9 Nutritional Hx/Data Height 1.5 m Height (Calculated Centimeters) 149.9 Current Weight (lbs) 54.431 kg Weight (Calculated Kilograms) 54.4 Weight (Calculated Grams) 51814.1 [place] Body Weight 98 Body Mass Index (BMI) 24.2 Weight Status Approriate GI Symptoms GI Symptoms None Last BM not indicated Difficult in: None Skin Integrity/Comment: intact Estimated Nutritional Goals BEE in Kcals: Using Current wt Calories/Kcals/Kg 25-30 Kcals Calculated 8304-8499 Protein: Using Current wt Protein g/k-1.2 Protein Calculated 55-66 Fluid: ml 1375-1650ml (1ml/kcal) Nutritional Problem 1. Problem Problem altered nutrition related labs Etiology hx of Dm Signs/Symptoms: glucose 444, POC 167-368, A1c 8.9 Malnutrition Alert Is there a minimum of two criteria No selected? Query Text:Check all the applicable criteria. A minimum of two criteria are recommended for diagnosis of either severe or non-severe malnutrition. Malnutrition Related to Morbid Obesity Malnutrition related to morbid obesity No Intervention/Recommendation Comments 1. Continue with [facility] diet as ordered. 2. Monitor PO intake, wt, labs and skin integrity 3. F/U as moderate risk in 3-5 days, 11/24-11/26 Expected Outcomes/Goals Expected Outcomes/Goals 1. PO intake to meet at least 75% of nutritional needs. 2. Wt stability, skin to remain intact, labs to approach WNL.
--- NOTE | 2017-11-27 16:43 | Progress Notes ---
DATE: 11/26/2017 SUBJECTIVE: Chart reviewed and the patient interviewed. Also discussed the patient's condition with the staff and reviewed records and labs. The patient still wonders in other patient's rooms. She also is argumentative. The patient also is restless and she is suspicious and paranoid and thinking that people are taking her money and keep asking about where is her money. The patient also is still intrusive and argumentative. Otherwise, during interview, it is not easier to redirect her. ASSESSMENT: The patient is still psychotic and needs lots of close monitoring. TREATMENT PLAN: Continue to monitor her behavior and her condition closely. Also, continue to work on her irritability and agitation and continue to follow up. [facility]# [id number]
--- NOTE | 2017-11-28 01:10 | Progress Notes ---
DATE: 11/27/2017 SUBJECTIVE: Chart reviewed and the patient interviewed. Also, discussed the patient's condition with the staff and reviewed records and labs. The patient continued to be disoriented and seemed to be confused. The patient also is restless and in irritable mood. She also is still interacting minimally with others. She also needs lots of redirections. Otherwise, the patient is compliant with taking her medications with no side effect of medications. ASSESSMENT: The patient is still confused and disoriented. TREATMENT PLAN: Continue monitoring her behavior and her condition closely. Also, continue to work on her ineffective coping and her impulse control and continue to follow up. JOB# [id number]
[2017-11-28] MEDS: INSULIN ASPART SLIDING SCALE 100 UNITS/ML UNIT SUBQ SCH ×4 (06:36→20:29)
[2017-11-28] MEDS: Multivitamin Tab PO SCH (09:08)
--- NOTE | 2017-11-28 22:12 | General Progress Note ---
Subjective - Review of Systems Service Date: 11/28/17 Subjective: nad Objective - Results Result Diagrams: 11/20/17 16:05 11/20/17 16:05 Recent Labs: Laboratory Last Values WBC 6.1 Th/cmm (4.8-10.8) 11/20/17 16:05 RBC 4.94 Mil/cmm (3.80-5.20) 11/20/17 16:05 Hgb 12.9 gm/dL (12-16) 11/20/17 16:05 Hct 38.7 % (41.0-60) L 11/20/17 16:05 MCV 78.5 fl (81-100) L 11/20/17 16:05 MCH 26.1 pg (27.0-31.0) L 11/20/17 16:05 MCHC Differential 33.2 pg (28.0-36.0) 11/20/17 16:05 RDW 14.0 % (11.5-20.0) 11/20/17 16:05 Plt Count 268 Th/cmm (150-400) 11/20/17 16:05 MPV 8.9 fl 11/20/17 16:05 Neutrophils % 64.1 % (40.0-80.0) 11/20/17 16:05 Lymphocytes % 26.1 % (20.0-50.0) 11/20/17 16:05 Monocytes % 7.0 % (2.0-10.0) 11/20/17 16:05 Eosinophils % 1.7 % (0.0-5.0) 11/20/17 16:05 Basophils % 1.1 % (0.0-2.0) 11/20/17 16:05 Sodium 132 mEq/L (136-145) L 11/20/17 16:05 Potassium 4.2 mEq/L (3.5-5.1) 11/20/17 16:05 Chloride 96 mEq/L (98-107) L 11/20/17 16:05 Carbon Dioxide 25.5 mEq/L (21.0-31.0) 11/20/17 16:05 Anion Gap 14.7 (7.0-16.0) 11/20/17 16:05 BUN 12 mg/dL (7-25) 11/20/17 16:05 Creatinine 0.6 mg/dL (0.6-1.2) 11/20/17 16:05 Est GFR ( Amer) TNP 11/20/17 16:05 Est GFR (Non-Af Amer) TNP 11/20/17 16:05 BUN/Creatinine Ratio 20.0 11/20/17 16:05 Glucose 444 mg/dL (70-105) H 11/20/17 16:05 POC Glucose 262 MG/DL (70 - 105) H 11/28/17 20:27 Hemoglobin A1c % 8.9 % (4.0-6.0) H 11/20/17 16:05 Calcium 9.8 mg/dL (8.6-10.3) 11/20/17 16:05 Total Bilirubin 0.3 mg/dL (0.3-1.0) 11/20/17 16:05 AST 39 U/L (13-39) 11/20/17 16:05 ALT 22 U/L (7-52) 11/20/17 16:05 Alkaline Phosphatase 69 U/L (34-104) 11/20/17 16:05 Total Protein 6.7 gm/dL (6.0-8.3) 11/20/17 16:05 Albumin 4.4 gm/dL (3.7-5.3) 11/20/17 16:05 Globulin 2.3 gm/dL 11/20/17 16:05 Albumin/Globulin Ratio 1.9 (1.0-1.8) H 11/20/17 16:05 Triglycerides 390 mg/dL (<150) H 11/20/17 16:05 Cholesterol 172 mg/dL (<200) 11/20/17 16:05 LDL Cholesterol Direct 91 mg/dL (75-193) 11/20/17 16:05 HDL Cholesterol 53 mg/dL (23-92) 11/20/17 16:05 TSH 0.72 uIU/ml (0.34-5.60) 11/20/17 16:05 Urine Source CLEAN C 11/20/17 18:04 Urine Color YELLOW 11/20/17 18:04 Urine Clarity CLEAR (CLEAR) 11/20/17 18:04 Urine pH 5.5 (4.6 - 8.0) 11/20/17 18:04 Ur Specific [place] 1.015 (1.005-1.030) 11/20/17 18:04 Urine Protein NEGATIVE mg/dL (NEGATIVE) 11/20/17 18:04 Urine Glucose (UA) >=1000 mg/dL (NEGATIVE) H 11/20/17 18:04 Urine Ketones NEGATIVE mg/dL (NEGATIVE) 11/20/17 18:04 Urine Blood NEGATIVE (NEGATIVE) 11/20/17 18:04 Urine Nitrate NEGATIVE (NEGATIVE) 11/20/17 18:04 Urine Bilirubin NEGATIVE (NEGATIVE) 11/20/17 18:04 Urine Urobilinogen 0.2 E.U./dL (0.2 - 1.0) 11/20/17 18:04 Ur Leukocyte Esterase NEGATIVE (NEGATIVE) 11/20/17 18:04 Urine RBC 0-2 /hpf (0-5) 11/20/17 18:04 Urine WBC 0-2 /hpf (0-5) 11/20/17 18:04 Ur Epithelial Cells OCCASIONAL /lpf (FEW) 11/20/17 18:04 Urine Bacteria NONE SEEN /hpf (NONE SEEN) 11/20/17 18:04 RPR NONREACTIVE (NONREACTIVE) 11/20/17 16:05 - Physical Exam Vitals and I&O: Vital Signs Temp 97.0 F 11/28/17 15:19 Pulse 93 11/28/17 15:19 Resp 19 11/28/17 20:00 BP 157/75 11/28/17 15:19 Pulse Ox 98 11/28/17 15:19 Intake & Output 11/28/17 11/28/17 11/29/17 06:59 18:59 06:59 Intake Total 1000 Balance 1000 Intake: Oral 1000 Other: # Voids 1,000 Active Medications: Current Medications Acetaminophen (Tylenol) 650 mg PO Q4HR PRN PRN Reason: Mild Pain / Temp above 100 Stop: 01/19/18 22:34 Last Admin: 11/27/17 08:42 Dose: 650 mg Al Hydrox/Mg Hydrox/Simethicone (Maalox) 30 ml PO Q4HR PRN PRN Reason: GI DISTRESS Stop: 01/19/18 22:34 Aripiprazole (Abilify) 2 mg PO DAILY [facility]; Protocol Stop: 01/20/18 08:59 Last Admin: 11/28/17 09:08 Dose: 2 mg Glipizide (Glucotrol) 5 mg PO BID [facility] Stop: 01/20/18 08:59 Last Admin: 11/28/17 16:38 Dose: Not Given Insulin Aspart (Novolog Insulin Sliding Scale) 0 units SUBQ ACHS [facility]; Protocol Stop: 01/22/18 07:29 Last Admin: 11/28/17 20:29 Dose: 6 units Lorazepam (Ativan) 0.5 mg PO Q4HR PRN; Protocol PRN Reason: Anxiety Stop: 12/20/17 19:29 Last Admin: 11/26/17 09:01 Dose: 0.5 mg Magnesium Hydroxide (Milk Of Magnesia) 30 ml PO HS PRN PRN Reason: Constipation Metformin HCl (Glucophage) 500 mg PO BID [facility] Stop: 01/20/18 08:59 Last Admin: 11/28/17 16:38 Dose: Not Given Multivitamins/Vitamin C (Theragran) 1 tab PO DAILY [facility] Stop: 01/20/18 08:59 Last Admin: 11/28/17 09:08 Dose: 1 tab Trazodone HCl (Desyrel) 75 mg PO HS PRN; Protocol PRN Reason: Insomnia Stop: 01/21/18 20:59 Last Admin: 11/28/17 20:40 Dose: 75 mg General: No acute distress HEENT: Atraumatic, PERRLA Neck: Supple, JVD Cardiovascular: Regular rate, Normal S1, Normal S2 Psych/Mental Status: Other (confused) Assessment/Plan - Assessment Assessment: Dementia Type 2 diabetes OA - Plan Plan: as per order sheet Nutritional Asmnt/Malnutr-PDOC - Dietary Evaluation Malnutrition Findings (Please click <Entered> for more info): Nutritional Asmnt/Malnutrition Start: 11/21/17 13: 59 Text: Status: Complete Freq: Protocol: Document 11/21/17 13:59 LCHENG (Rec: 11/21/17 14:16 LCHENG [email or web address]) Nutritional Asmnt/Malnutrition Patient General Information Nutritional Screening High Risk Diagnosis dementai with agitation Pertinent Medical Hx/Surgical Hx HTN, DM, left knee surgery Subjective Information BS 444 at admission noted. Pt seen walking in dining room, confused. Not able to provide nutrition education d/t pt mental status. 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 Current Diet Order/ Nutrition Support CCHO Pertinent Medications glucotrol, glucophage, theragran Pertinent Labs 11/20 Na 132, Cl 96, glucose 444 , POC 167-368, A1c 8.9 Nutritional Hx/Data Height 1.5 m Height (Calculated Centimeters) 149.9 Current Weight (lbs) 54.431 kg Weight (Calculated Kilograms) 54.4 Weight (Calculated Grams) 64373.1 [place] Body Weight 98 Body Mass Index (BMI) 24.2 Weight Status Approriate GI Symptoms GI Symptoms None Last BM not indicated Difficult in: None Skin Integrity/Comment: intact Estimated Nutritional Goals BEE in Kcals: Using Current wt Calories/Kcals/Kg 25-30 Kcals Calculated 6874-6846 Protein: Using Current wt Protein g/k-1.2 Protein Calculated 55-66 Fluid: ml 1375-1650ml (1ml/kcal) Nutritional Problem 1. Problem Problem altered nutrition related labs Etiology hx of Dm Signs/Symptoms: glucose 444, POC 167-368, A1c 8.9 Malnutrition Alert Is there a minimum of two criteria No selected? Query Text:Check all the applicable criteria. A minimum of two criteria are recommended for diagnosis of either severe or non-severe malnutrition. Malnutrition Related to Morbid Obesity Malnutrition related to morbid obesity No Intervention/Recommendation Comments 1. Continue with [facility] diet as ordered. 2. Monitor PO intake, wt, labs and skin integrity 3. F/U as moderate risk in 3-5 days, 11/24-11/26 Expected Outcomes/Goals Expected Outcomes/Goals 1. PO intake to meet at least 75% of nutritional needs. 2. Wt stability, skin to remain intact, labs to approach WNL.
[2017-11-29] MEDS: INSULIN ASPART SLIDING SCALE 100 UNITS/ML UNIT SUBQ SCH ×4 (06:59→20:49)
--- NOTE | 2017-11-29 08:08 | Progress Notes ---
DATE: 11/28/2017 PSYCHIATRIC PROGRESS NOTE Chart reviewed and the patient interviewed. Also discussed the patient's condition with the staff and reviewed records and labs. The patient is still confused and still talking of mixed between some words in Irish and some words in Malaysian. The patient also is still disoriented and also is still disheveled. She also still needs lots of redirections. The patient also is still in angry mood at times. Otherwise, the patient is compliant with taking her medications with no side effect of medications. ASSESSMENT: The patient is still confused and is still agitated. TREATMENT PLAN: Continue to monitor her behavior and her condition closely. Also, continue to work on her ineffective coping and her confusion and continue to follow up. [facility]# [id number]
[2017-11-29] MEDS: Multivitamin Tab PO SCH (09:00)
--- NOTE | 2017-11-29 19:07 | Progress Notes ---
DATE: 11/29/2017 SUBJECTIVE: Chart reviewed and the patient interviewed. Also, discussed the patient's condition with the staff and reviewed records and labs. The patient is suspicious and is still paranoid. The patient also still has episodes of irritability and anger. She also is still uncooperative with taking medications and noncompliant with taking medications. She is also easily agitated and easily irritable. Otherwise, the patient is slightly easier to redirect her. ASSESSMENT: The patient is still agitated and needs close monitoring. TREATMENT PLAN: We will continue monitoring her behavior closely. Also, encourage keeping her through . JOB# [id number]
--- NOTE | 2017-11-29 20:39 | Progress Notes ---
DATE: 11/29/2017 SUBJECTIVE: The patient was seen in the dining area. The patient appears to be agitated and irritable, poor historian. She gets frustrated. Otherwise, the patient is in no acute distress. OBJECTIVE: VITAL SIGNS: Temperature 97, heart rate 93, blood pressure 157/75, respiration of 19, 98% on room air. HEENT: Head is atraumatic and normocephalic. Eyes: Bilateral conjunctivae are clear. Bilateral pupils are equally round and reactive. NECK: Supple. No JVD. CARDIOVASCULAR: S1 and S2, without murmur. PULMONARY: Clear to auscultation. GASTROINTESTINAL: Soft and nontender without guarding. Positive bowel sounds. MUSCULOSKELETAL: No clubbing. No cyanosis noted. ASSESSMENT: 1. Dementia. 2. Diabetes. 3. Osteoarthritis. PLAN: We will continue to keep the patient inpatient Psychiatric Unit. We will follow up with a psychiatrist to monitor the patient's condition and behavior. Treatment plans were discussed with the patient's nurse. Treatment plans were discussed with Dr. Crain. JOB# [id number]
[2017-11-30] MEDS: INSULIN ASPART SLIDING SCALE 100 UNITS/ML UNIT SUBQ SCH ×4 (06:49→20:21)
[2017-11-30] MEDS: Multivitamin Tab PO SCH (09:08)
--- NOTE | 2017-11-30 13:31 | General Progress Note ---
Subjective - Review of Systems Events since last encounter: patient irritable otherwise in no distress Subjective: nad Objective - Results Result Diagrams: 11/20/17 16:05 11/20/17 16:05 Recent Labs: Laboratory Last Values WBC 6.1 Th/cmm (4.8-10.8) 11/20/17 16:05 RBC 4.94 Mil/cmm (3.80-5.20) 11/20/17 16:05 Hgb 12.9 gm/dL (12-16) 11/20/17 16:05 Hct 38.7 % (41.0-60) L 11/20/17 16:05 MCV 78.5 fl (81-100) L 11/20/17 16:05 MCH 26.1 pg (27.0-31.0) L 11/20/17 16:05 MCHC Differential 33.2 pg (28.0-36.0) 11/20/17 16:05 RDW 14.0 % (11.5-20.0) 11/20/17 16:05 Plt Count 268 Th/cmm (150-400) 11/20/17 16:05 MPV 8.9 fl 11/20/17 16:05 Neutrophils % 64.1 % (40.0-80.0) 11/20/17 16:05 Lymphocytes % 26.1 % (20.0-50.0) 11/20/17 16:05 Monocytes % 7.0 % (2.0-10.0) 11/20/17 16:05 Eosinophils % 1.7 % (0.0-5.0) 11/20/17 16:05 Basophils % 1.1 % (0.0-2.0) 11/20/17 16:05 Sodium 132 mEq/L (136-145) L 11/20/17 16:05 Potassium 4.2 mEq/L (3.5-5.1) 11/20/17 16:05 Chloride 96 mEq/L (98-107) L 11/20/17 16:05 Carbon Dioxide 25.5 mEq/L (21.0-31.0) 11/20/17 16:05 Anion Gap 14.7 (7.0-16.0) 11/20/17 16:05 BUN 12 mg/dL (7-25) 11/20/17 16:05 Creatinine 0.6 mg/dL (0.6-1.2) 11/20/17 16:05 Est GFR ( Amer) TNP 11/20/17 16:05 Est GFR (Non-Af Amer) TNP 11/20/17 16:05 BUN/Creatinine Ratio 20.0 11/20/17 16:05 Glucose 444 mg/dL (70-105) H 11/20/17 16:05 POC Glucose 271 MG/DL (70 - 105) H 11/29/17 16:21 Hemoglobin A1c % 8.9 % (4.0-6.0) H 11/20/17 16:05 Calcium 9.8 mg/dL (8.6-10.3) 11/20/17 16:05 Total Bilirubin 0.3 mg/dL (0.3-1.0) 11/20/17 16:05 AST 39 U/L (13-39) 11/20/17 16:05 ALT 22 U/L (7-52) 11/20/17 16:05 Alkaline Phosphatase 69 U/L (34-104) 11/20/17 16:05 Total Protein 6.7 gm/dL (6.0-8.3) 11/20/17 16:05 Albumin 4.4 gm/dL (3.7-5.3) 11/20/17 16:05 Globulin 2.3 gm/dL 11/20/17 16:05 Albumin/Globulin Ratio 1.9 (1.0-1.8) H 11/20/17 16:05 Triglycerides 390 mg/dL (<150) H 11/20/17 16:05 Cholesterol 172 mg/dL (<200) 11/20/17 16:05 LDL Cholesterol Direct 91 mg/dL (75-193) 11/20/17 16:05 HDL Cholesterol 53 mg/dL (23-92) 11/20/17 16:05 TSH 0.72 uIU/ml (0.34-5.60) 11/20/17 16:05 Urine Source CLEAN C 11/20/17 18:04 Urine Color YELLOW 11/20/17 18:04 Urine Clarity CLEAR (CLEAR) 11/20/17 18:04 Urine pH 5.5 (4.6 - 8.0) 11/20/17 18:04 Ur Specific [place] 1.015 (1.005-1.030) 11/20/17 18:04 Urine Protein NEGATIVE mg/dL (NEGATIVE) 11/20/17 18:04 Urine Glucose (UA) >=1000 mg/dL (NEGATIVE) H 11/20/17 18:04 Urine Ketones NEGATIVE mg/dL (NEGATIVE) 11/20/17 18:04 Urine Blood NEGATIVE (NEGATIVE) 11/20/17 18:04 Urine Nitrate NEGATIVE (NEGATIVE) 11/20/17 18:04 Urine Bilirubin NEGATIVE (NEGATIVE) 11/20/17 18:04 Urine Urobilinogen 0.2 E.U./dL (0.2 - 1.0) 11/20/17 18:04 Ur Leukocyte Esterase NEGATIVE (NEGATIVE) 11/20/17 18:04 Urine RBC 0-2 /hpf (0-5) 11/20/17 18:04 Urine WBC 0-2 /hpf (0-5) 11/20/17 18:04 Ur Epithelial Cells OCCASIONAL /lpf (FEW) 11/20/17 18:04 Urine Bacteria NONE SEEN /hpf (NONE SEEN) 11/20/17 18:04 RPR NONREACTIVE (NONREACTIVE) 11/20/17 16:05 - Physical Exam Vitals and I&O: Vital Signs Temp 98.1 F 11/29/17 15:44 Pulse 95 11/29/17 15:44 Resp 18 11/29/17 15:44 BP 126/62 11/29/17 15:44 Pulse Ox 96 11/29/17 15:44 Intake & Output 11/29/17 11/30/17 11/30/17 18:59 06:59 18:59 Intake Total 1200 Balance 1200 Intake: Oral 1200 Other: # Voids 3 Active Medications: Current Medications Acetaminophen (Tylenol) 650 mg PO Q4HR PRN PRN Reason: Mild Pain / Temp above 100 Stop: 01/19/18 22:34 Last Admin: 11/27/17 08:42 Dose: 650 mg Al Hydrox/Mg Hydrox/Simethicone (Maalox) 30 ml PO Q4HR PRN PRN Reason: GI DISTRESS Stop: 01/19/18 22:34 Aripiprazole (Abilify) 2 mg PO DAILY PAUL; Protocol Stop: 01/20/18 08:59 Last Admin: 11/30/17 09:09 Dose: 2 mg Glipizide (Glucotrol) 5 mg PO BID [facility] Stop: 01/20/18 08:59 Last Admin: 11/30/17 09:08 Dose: 5 mg Insulin Aspart (Novolog Insulin Sliding Scale) 0 units SUBQ ACHS PAUL; Protocol Stop: 01/22/18 07:29 Last Admin: 11/30/17 11:04 Dose: Not Given Lorazepam (Ativan) 0.5 mg PO Q4HR PRN; Protocol PRN Reason: Anxiety Stop: 12/20/17 19:29 Last Admin: 11/26/17 09:01 Dose: 0.5 mg Magnesium Hydroxide (Milk Of Magnesia) 30 ml PO HS PRN PRN Reason: Constipation Metformin HCl (Glucophage) 500 mg PO BID [facility] Stop: 01/20/18 08:59 Last Admin: 11/30/17 09:08 Dose: 500 mg Multivitamins/Vitamin C (Theragran) 1 tab PO DAILY PAUL Stop: 01/20/18 08:59 Last Admin: 11/30/17 09:08 Dose: 1 tab Trazodone HCl (Desyrel) 75 mg PO HS PRN; Protocol PRN Reason: Insomnia Stop: 01/21/18 20:59 Last Admin: 11/29/17 20:45 Dose: 75 mg General: No acute distress HEENT: Atraumatic, PERRLA Neck: Supple, JVD Cardiovascular: Regular rate, Normal S1, Normal S2 Psych/Mental Status: Other (confused) Assessment/Plan - Problem List Patient Problems: All Active Problems Dementia (Acute) F03.90 Diabetes (Acute) E11.9 Osteoarthritis (Acute) M19.90 - Assessment Assessment: Dementia Type 2 diabetes OA - Plan Plan: as per order sheet Nutritional Asmnt/Malnutr-PDOC - Dietary Evaluation Malnutrition Findings (Please click <Entered> for more info): Nutritional Asmnt/Malnutrition Start: 11/21/17 13: 59 Text: Status: Complete Freq: Protocol: Document 11/21/17 13:59 KALYANIG (Rec: 11/21/17 14:16 [email or web address]) Nutritional Asmnt/Malnutrition Patient General Information Nutritional Screening High Risk Diagnosis dementai with agitation Pertinent Medical Hx/Surgical Hx HTN, DM, left knee surgery Subjective Information BS 444 at admission noted. Pt seen walking in dining room, confused. Not able to provide nutrition education d/t pt mental status. Per C[employer] INSULATOR HELPER, pt consumed 60% of breakfast this morning. Current Diet Order/ Nutrition Support [facility] Pertinent Medications glucotrol, glucophage, theragran Pertinent Labs 11/20 Na 132, Cl 96, glucose 444 , POC 167-368, A1c 8.9 Nutritional Hx/Data Height 1.5 m Height (Calculated Centimeters) 149.9 Current Weight (lbs) 54.431 kg Weight (Calculated Kilograms) 54.4 Weight (Calculated Grams) 45952.1 [place] Body Weight 98 Body Mass Index (BMI) 24.2 Weight Status Approriate GI Symptoms GI Symptoms None Last BM not indicated Difficult in: None Skin Integrity/Comment: intact Estimated Nutritional Goals BEE in Kcals: Using Current wt Calories/Kcals/Kg 25-30 Kcals Calculated 3817-3906 Protein: Using Current wt Protein g/k-1.2 Protein Calculated 55-66 Fluid: ml 1375-1650ml (1ml/kcal) Nutritional Problem 1. Problem Problem altered nutrition related labs Etiology hx of Dm Signs/Symptoms: glucose 444, POC 167-368, A1c 8.9 Malnutrition Alert Is there a minimum of two criteria No selected? Query Text:Check all the applicable criteria. A minimum of two criteria are recommended for diagnosis of either severe or non-severe malnutrition. Malnutrition Related to Morbid Obesity Malnutrition related to morbid obesity No Intervention/Recommendation Comments 1. Continue with [facility] diet as ordered. 2. Monitor PO intake, wt, labs and skin integrity 3. F/U as moderate risk in 3-5 days, 11/24-11/26 Expected Outcomes/Goals Expected Outcomes/Goals 1. PO intake to meet at least 75% of nutritional needs. 2. Wt stability, skin to remain intact, labs to approach WNL.
--- NOTE | 2017-12-01 01:09 | Progress Notes ---
DATE: 11/30/2017 SUBJECTIVE: Chart reviewed and the patient interviewed. Also, discussed the patient's condition with the staff and reviewed records and labs. The patient is still suspicious and paranoid. The patient also is still confused. The patient is guarded. She also is still selective with medications. The patient also is still mixing languages between a Italian and Vietnamese. She also is still showing , poor personal hygiene. Otherwise, the patient needs still prompt instructions. ASSESSMENT: The patient is still confused and needs close monitoring. TREATMENT PLAN: Continue to monitor her behavior and her condition closely. Also, continue to adjust psychotropic medications and follow up closely. JOB# [id number]
[2017-12-01] MEDS: INSULIN ASPART SLIDING SCALE 100 UNITS/ML UNIT SUBQ SCH ×4 (06:49→21:00)
[2017-12-01] MEDS: Multivitamin Tab PO SCH (10:37)
--- NOTE | 2017-12-01 16:06 | General Progress Note ---
Subjective - Review of Systems Events since last encounter: irritable , in no distress Subjective: nad Objective - Results Result Diagrams: 11/20/17 16:05 11/20/17 16:05 Recent Labs: Laboratory Last Values WBC 6.1 Th/cmm (4.8-10.8) 11/20/17 16:05 RBC 4.94 Mil/cmm (3.80-5.20) 11/20/17 16:05 Hgb 12.9 gm/dL (12-16) 11/20/17 16:05 Hct 38.7 % (41.0-60) L 11/20/17 16:05 MCV 78.5 fl (81-100) L 11/20/17 16:05 MCH 26.1 pg (27.0-31.0) L 11/20/17 16:05 MCHC Differential 33.2 pg (28.0-36.0) 11/20/17 16:05 RDW 14.0 % (11.5-20.0) 11/20/17 16:05 Plt Count 268 Th/cmm (150-400) 11/20/17 16:05 MPV 8.9 fl 11/20/17 16:05 Neutrophils % 64.1 % (40.0-80.0) 11/20/17 16:05 Lymphocytes % 26.1 % (20.0-50.0) 11/20/17 16:05 Monocytes % 7.0 % (2.0-10.0) 11/20/17 16:05 Eosinophils % 1.7 % (0.0-5.0) 11/20/17 16:05 Basophils % 1.1 % (0.0-2.0) 11/20/17 16:05 Sodium 132 mEq/L (136-145) L 11/20/17 16:05 Potassium 4.2 mEq/L (3.5-5.1) 11/20/17 16:05 Chloride 96 mEq/L (98-107) L 11/20/17 16:05 Carbon Dioxide 25.5 mEq/L (21.0-31.0) 11/20/17 16:05 Anion Gap 14.7 (7.0-16.0) 11/20/17 16:05 BUN 12 mg/dL (7-25) 11/20/17 16:05 Creatinine 0.6 mg/dL (0.6-1.2) 11/20/17 16:05 Est GFR ( Amer) TNP 11/20/17 16:05 Est GFR (Non-Af Amer) TNP 11/20/17 16:05 BUN/Creatinine Ratio 20.0 11/20/17 16:05 Glucose 444 mg/dL (70-105) H 11/20/17 16:05 POC Glucose 187 MG/DL (70-105) H 11/30/17 16:19 Hemoglobin A1c % 8.9 % (4.0-6.0) H 11/20/17 16:05 Calcium 9.8 mg/dL (8.6-10.3) 11/20/17 16:05 Total Bilirubin 0.3 mg/dL (0.3-1.0) 11/20/17 16:05 AST 39 U/L (13-39) 11/20/17 16:05 ALT 22 U/L (7-52) 11/20/17 16:05 Alkaline Phosphatase 69 U/L (34-104) 11/20/17 16:05 Total Protein 6.7 gm/dL (6.0-8.3) 11/20/17 16:05 Albumin 4.4 gm/dL (3.7-5.3) 11/20/17 16:05 Globulin 2.3 gm/dL 11/20/17 16:05 Albumin/Globulin Ratio 1.9 (1.0-1.8) H 11/20/17 16:05 Triglycerides 390 mg/dL (<150) H 11/20/17 16:05 Cholesterol 172 mg/dL (<200) 11/20/17 16:05 LDL Cholesterol Direct 91 mg/dL (75-193) 11/20/17 16:05 HDL Cholesterol 53 mg/dL (23-92) 11/20/17 16:05 TSH 0.72 uIU/ml (0.34-5.60) 11/20/17 16:05 Urine Source CLEAN C 11/20/17 18:04 Urine Color YELLOW 11/20/17 18:04 Urine Clarity CLEAR (CLEAR) 11/20/17 18:04 Urine pH 5.5 (4.6 - 8.0) 11/20/17 18:04 Ur Specific [place] 1.015 (1.005-1.030) 11/20/17 18:04 Urine Protein NEGATIVE mg/dL (NEGATIVE) 11/20/17 18:04 Urine Glucose (UA) >=1000 mg/dL (NEGATIVE) H 11/20/17 18:04 Urine Ketones NEGATIVE mg/dL (NEGATIVE) 11/20/17 18:04 Urine Blood NEGATIVE (NEGATIVE) 11/20/17 18:04 Urine Nitrate NEGATIVE (NEGATIVE) 11/20/17 18:04 Urine Bilirubin NEGATIVE (NEGATIVE) 11/20/17 18:04 Urine Urobilinogen 0.2 E.U./dL (0.2 - 1.0) 11/20/17 18:04 Ur Leukocyte Esterase NEGATIVE (NEGATIVE) 11/20/17 18:04 Urine RBC 0-2 /hpf (0-5) 11/20/17 18:04 Urine WBC 0-2 /hpf (0-5) 11/20/17 18:04 Ur Epithelial Cells OCCASIONAL /lpf (FEW) 11/20/17 18:04 Urine Bacteria NONE SEEN /hpf (NONE SEEN) 11/20/17 18:04 RPR NONREACTIVE (NONREACTIVE) 11/20/17 16:05 - Physical Exam Vitals and I&O: Vital Signs Temp 97.6 F 12/01/17 06:32 Pulse 75 12/01/17 06:32 Resp 18 12/01/17 06:32 BP 150/83 12/01/17 06:32 Pulse Ox 98 12/01/17 06:32 Intake & Output 11/30/17 12/01/17 12/01/17 18:59 06:59 18:59 Intake Total 1200 180 Balance 1200 180 Intake: Oral 1200 180 Other: # Voids 3 3 # Bowel Movements 0 Active Medications: Current Medications Acetaminophen (Tylenol) 650 mg PO Q4HR PRN PRN Reason: Mild Pain / Temp above 100 Stop: 01/19/18 22:34 Last Admin: 11/27/17 08:42 Dose: 650 mg Al Hydrox/Mg Hydrox/Simethicone (Maalox) 30 ml PO Q4HR PRN PRN Reason: GI DISTRESS Stop: 01/19/18 22:34 Aripiprazole (Abilify) 2 mg PO DAILY PAUL; Protocol Stop: 01/20/18 08:59 Last Admin: 12/01/17 10:37 Dose: 2 mg Glipizide (Glucotrol) 5 mg PO BID [facility] Stop: 01/20/18 08:59 Last Admin: 12/01/17 10:37 Dose: 5 mg Insulin Aspart (Novolog Insulin Sliding Scale) 0 units SUBQ ACHS PAUL; Protocol Stop: 01/22/18 07:29 Last Admin: 12/01/17 06:49 Dose: Not Given Lorazepam (Ativan) 0.5 mg PO Q4HR PRN; Protocol PRN Reason: Anxiety Stop: 12/20/17 19:29 Last Admin: 11/30/17 17:02 Dose: 0.5 mg Magnesium Hydroxide (Milk Of Magnesia) 30 ml PO HS PRN PRN Reason: Constipation Metformin HCl (Glucophage) 500 mg PO BID [facility] Stop: 01/20/18 08:59 Last Admin: 12/01/17 10:37 Dose: 500 mg Multivitamins/Vitamin C (Theragran) 1 tab PO DAILY [facility] Stop: 01/20/18 08:59 Last Admin: 12/01/17 10:37 Dose: 1 tab Trazodone HCl (Desyrel) 75 mg PO HS PRN; Protocol PRN Reason: Insomnia Stop: 01/21/18 20:59 Last Admin: 11/30/17 20:20 Dose: 75 mg General: No acute distress HEENT: Atraumatic, PERRLA Neck: Supple, JVD Cardiovascular: Regular rate, Normal S1, Normal S2 Psych/Mental Status: Other (confused) Assessment/Plan - Problem List Patient Problems: All Active Problems Dementia (Acute) F03.90 Diabetes (Acute) E11.9 Osteoarthritis (Acute) M19.90 - Assessment Assessment: Dementia Type 2 diabetes OA - Plan Plan: as per order sheet Nutritional Asmnt/Malnutr-PDOC - Dietary Evaluation Malnutrition Findings (Please click <Entered> for more info): Nutritional Asmnt/Malnutrition Start: 11/21/17 13: 59 Text: Status: Complete Freq: Protocol: Document 11/21/17 13:59 LCYESENIAG (Rec: 11/21/17 14:16 [email or web address]) Nutritional Asmnt/Malnutrition Patient General Information Nutritional Screening High Risk Diagnosis dementai with agitation Pertinent Medical Hx/Surgical Hx HTN, DM, left knee surgery Subjective Information BS 444 at admission noted. Pt seen walking in dining room, confused. Not able to provide nutrition education d/t pt mental status. Per BOLTER HELPER, pt consumed 60% of breakfast this morning. Current Diet Order/ Nutrition Support [facility] Pertinent Medications glucotrol, glucophage, theragran Pertinent Labs 11/20 Na 132, Cl 96, glucose 444 , POC 167-368, A1c 8.9 Nutritional Hx/Data Height 1.5 m Height (Calculated Centimeters) 149.9 Current Weight (lbs) 54.431 kg Weight (Calculated Kilograms) 54.4 Weight (Calculated Grams) 09009.1 [place] Body Weight 98 Body Mass Index (BMI) 24.2 Weight Status Approriate GI Symptoms GI Symptoms None Last BM not indicated Difficult in: None Skin Integrity/Comment: intact Estimated Nutritional Goals BEE in Kcals: Using Current wt Calories/Kcals/Kg 25-30 Kcals Calculated 2984-6078 Protein: Using Current wt Protein g/k-1.2 Protein Calculated 55-66 Fluid: ml 1375-1650ml (1ml/kcal) Nutritional Problem 1. Problem Problem altered nutrition related labs Etiology hx of Dm Signs/Symptoms: glucose 444, POC 167-368, A1c 8.9 Malnutrition Alert Is there a minimum of two criteria No selected? Query Text:Check all the applicable criteria. A minimum of two criteria are recommended for diagnosis of either severe or non-severe malnutrition. Malnutrition Related to Morbid Obesity Malnutrition related to morbid obesity No Intervention/Recommendation Comments 1. Continue with [facility] diet as ordered. 2. Monitor PO intake, wt, labs and skin integrity 3. F/U as moderate risk in 3-5 days, 11/24-11/26 Expected Outcomes/Goals Expected Outcomes/Goals 1. PO intake to meet at least 75% of nutritional needs. 2. Wt stability, skin to remain intact, labs to approach WNL.
--- NOTE | 2017-12-01 20:22 | Progress Notes ---
DATE: 12/01/2017 SUBJECTIVE: Chart reviewed and the patient interviewed. Also, discussed the patient's condition with the staff and reviewed the records and labs. The patient is still anxious. The patient also is still guarded and is still somehow suspicious or paranoid. She also is slightly confused. Otherwise, the patient is taking Abilify with no side effects of Abilify. ASSESSMENT: The patient is agitated but seems to be less irritable. TREATMENT PLAN: Continue to monitor behavior and continue her medications closely and will continue to work on discharge plans. To continue Abilify 2 mg every day and to follow up. JOB# [id number]
[2017-12-02] MEDS: INSULIN ASPART SLIDING SCALE 100 UNITS/ML UNIT SUBQ SCH ×4 (06:40→21:00)
[2017-12-02] MEDS: Multivitamin Tab PO SCH (08:46)
--- NOTE | 2017-12-03 01:33 | Progress Notes ---
DATE: SUBJECTIVE: Chart reviewed and the patient interviewed. Also discussed the patient's condition with the staff and reviewed records and labs. The patient is still anxious and she is still confused. The patient also still needs a lot of redirections. She is still suspicious and paranoid. The patient also at times refused to take some of her medications, but in general, she is more cooperative and more compliant with taking her medications. TREATMENT PLAN: Discussed with the patient's daughter on discharge plans and the patient's daughter cannot take care of the patient and the patient will need placement. The patient's daughter agreed that the patient can go to [facility]. We will try to arrange for the patient to go there. At the same time, we will monitor behavior and we will continue to work on her irritability and her agitation and continue to follow up. JOB# [id number]
[2017-12-03] MEDS: INSULIN ASPART SLIDING SCALE 100 UNITS/ML UNIT SUBQ SCH ×3 (06:40→15:54)
[2017-12-03] MEDS: Multivitamin Tab PO SCH (09:27)
--- NOTE | 2017-12-03 15:24 | General Progress Note ---
Subjective - Review of Systems Events since last encounter: patient still irritable ,on and off denies pain Subjective: nad Objective - Results Result Diagrams: 11/20/17 16:05 11/20/17 16:05 Recent Labs: Laboratory Last Values WBC 6.1 Th/cmm (4.8-10.8) 11/20/17 16:05 RBC 4.94 Mil/cmm (3.80-5.20) 11/20/17 16:05 Hgb 12.9 gm/dL (12-16) 11/20/17 16:05 Hct 38.7 % (41.0-60) L 11/20/17 16:05 MCV 78.5 fl (81-100) L 11/20/17 16:05 MCH 26.1 pg (27.0-31.0) L 11/20/17 16:05 MCHC Differential 33.2 pg (28.0-36.0) 11/20/17 16:05 RDW 14.0 % (11.5-20.0) 11/20/17 16:05 Plt Count 268 Th/cmm (150-400) 11/20/17 16:05 MPV 8.9 fl 11/20/17 16:05 Neutrophils % 64.1 % (40.0-80.0) 11/20/17 16:05 Lymphocytes % 26.1 % (20.0-50.0) 11/20/17 16:05 Monocytes % 7.0 % (2.0-10.0) 11/20/17 16:05 Eosinophils % 1.7 % (0.0-5.0) 11/20/17 16:05 Basophils % 1.1 % (0.0-2.0) 11/20/17 16:05 Sodium 132 mEq/L (136-145) L 11/20/17 16:05 Potassium 4.2 mEq/L (3.5-5.1) 11/20/17 16:05 Chloride 96 mEq/L (98-107) L 11/20/17 16:05 Carbon Dioxide 25.5 mEq/L (21.0-31.0) 11/20/17 16:05 Anion Gap 14.7 (7.0-16.0) 11/20/17 16:05 BUN 12 mg/dL (7-25) 11/20/17 16:05 Creatinine 0.6 mg/dL (0.6-1.2) 11/20/17 16:05 Est GFR ( Amer) TNP 11/20/17 16:05 Est GFR (Non-Af Amer) TNP 11/20/17 16:05 BUN/Creatinine Ratio 20.0 11/20/17 16:05 Glucose 444 mg/dL (70-105) H 11/20/17 16:05 POC Glucose 187 MG/DL (70-105) H 11/30/17 16:19 Hemoglobin A1c % 8.9 % (4.0-6.0) H 11/20/17 16:05 Calcium 9.8 mg/dL (8.6-10.3) 11/20/17 16:05 Total Bilirubin 0.3 mg/dL (0.3-1.0) 11/20/17 16:05 AST 39 U/L (13-39) 11/20/17 16:05 ALT 22 U/L (7-52) 11/20/17 16:05 Alkaline Phosphatase 69 U/L (34-104) 11/20/17 16:05 Total Protein 6.7 gm/dL (6.0-8.3) 11/20/17 16:05 Albumin 4.4 gm/dL (3.7-5.3) 11/20/17 16:05 Globulin 2.3 gm/dL 11/20/17 16:05 Albumin/Globulin Ratio 1.9 (1.0-1.8) H 11/20/17 16:05 Triglycerides 390 mg/dL (<150) H 11/20/17 16:05 Cholesterol 172 mg/dL (<200) 11/20/17 16:05 LDL Cholesterol Direct 91 mg/dL (75-193) 11/20/17 16:05 HDL Cholesterol 53 mg/dL (23-92) 11/20/17 16:05 TSH 0.72 uIU/ml (0.34-5.60) 11/20/17 16:05 Urine Source CLEAN C 11/20/17 18:04 Urine Color YELLOW 11/20/17 18:04 Urine Clarity CLEAR (CLEAR) 11/20/17 18:04 Urine pH 5.5 (4.6 - 8.0) 11/20/17 18:04 Ur Specific [place] 1.015 (1.005-1.030) 11/20/17 18:04 Urine Protein NEGATIVE mg/dL (NEGATIVE) 11/20/17 18:04 Urine Glucose (UA) >=1000 mg/dL (NEGATIVE) H 11/20/17 18:04 Urine Ketones NEGATIVE mg/dL (NEGATIVE) 11/20/17 18:04 Urine Blood NEGATIVE (NEGATIVE) 11/20/17 18:04 Urine Nitrate NEGATIVE (NEGATIVE) 11/20/17 18:04 Urine Bilirubin NEGATIVE (NEGATIVE) 11/20/17 18:04 Urine Urobilinogen 0.2 E.U./dL (0.2 - 1.0) 11/20/17 18:04 Ur Leukocyte Esterase NEGATIVE (NEGATIVE) 11/20/17 18:04 Urine RBC 0-2 /hpf (0-5) 11/20/17 18:04 Urine WBC 0-2 /hpf (0-5) 11/20/17 18:04 Ur Epithelial Cells OCCASIONAL /lpf (FEW) 11/20/17 18:04 Urine Bacteria NONE SEEN /hpf (NONE SEEN) 11/20/17 18:04 RPR NONREACTIVE (NONREACTIVE) 11/20/17 16:05 - Physical Exam Vitals and I&O: Vital Signs Temp 97.6 F 12/03/17 14:43 Pulse 91 12/03/17 14:43 Resp 20 12/03/17 14:43 BP 157/76 12/03/17 14:43 Pulse Ox 98 12/03/17 14:43 Intake & Output 12/02/17 12/03/17 12/03/17 18:59 06:59 18:59 Intake Total 1200 120 Balance 1200 120 Intake: Oral 1200 120 Other: # Voids 3 3 # Bowel Movements 0 Active Medications: Current Medications Acetaminophen (Tylenol) 650 mg PO Q4HR PRN PRN Reason: Mild Pain / Temp above 100 Stop: 01/19/18 22:34 Last Admin: 11/27/17 08:42 Dose: 650 mg Al Hydrox/Mg Hydrox/Simethicone (Maalox) 30 ml PO Q4HR PRN PRN Reason: GI DISTRESS Stop: 01/19/18 22:34 Aripiprazole (Abilify) 2 mg PO DAILY PAUL; Protocol Stop: 01/20/18 08:59 Last Admin: 12/03/17 09:27 Dose: 2 mg Glipizide (Glucotrol) 5 mg PO BID PAUL Stop: 01/20/18 08:59 Last Admin: 12/03/17 09:27 Dose: 5 mg Insulin Aspart (Novolog Insulin Sliding Scale) 0 units SUBQ ACHS PAUL; Protocol Stop: 01/22/18 07:29 Last Admin: 12/03/17 11:10 Dose: Not Given Lorazepam (Ativan) 0.5 mg PO Q4HR PRN; Protocol PRN Reason: Anxiety Stop: 12/20/17 19:29 Last Admin: 11/30/17 17:02 Dose: 0.5 mg Magnesium Hydroxide (Milk Of Magnesia) 30 ml PO HS PRN PRN Reason: Constipation Metformin HCl (Glucophage) 500 mg PO BID [facility] Stop: 01/20/18 08:59 Last Admin: 12/03/17 09:27 Dose: 500 mg Multivitamins/Vitamin C (Theragran) 1 tab PO DAILY [facility] Stop: 01/20/18 08:59 Last Admin: 12/03/17 09:27 Dose: 1 tab Trazodone HCl (Desyrel) 75 mg PO HS PRN; Protocol PRN Reason: Insomnia Stop: 01/21/18 20:59 Last Admin: 12/02/17 20:48 Dose: 75 mg General: No acute distress HEENT: Atraumatic, PERRLA Neck: Supple, JVD Cardiovascular: Regular rate, Normal S1, Normal S2 Psych/Mental Status: Other (confused) Assessment/Plan - Problem List Patient Problems: All Active Problems Dementia (Acute) F03.90 Diabetes (Acute) E11.9 Osteoarthritis (Acute) M19.90 - Assessment Assessment: Dementia Type 2 diabetes OA - Plan Plan: as per order sheet Nutritional Asmnt/Malnutr-PDOC - Dietary Evaluation Malnutrition Findings (Please click <Entered> for more info): Nutritional Asmnt/Malnutrition Start: 11/21/17 13: 59 Text: Status: Complete Freq: Protocol: Document 11/21/17 13:59 LCHENG (Rec: 11/21/17 14:16 [email or web address] [email or web address]) Nutritional Asmnt/Malnutrition Patient General Information Nutritional Screening High Risk Diagnosis dementai with agitation Pertinent Medical Hx/Surgical Hx HTN, DM, left knee surgery Subjective Information BS 444 at admission noted. Pt seen walking in dining room, confused. Not able to provide nutrition education d/t pt mental status. Per [employer], pt consumed 60% of breakfast this morning. Current Diet Order/ Nutrition Support [facility] Pertinent Medications glucotrol, glucophage, theragran Pertinent Labs 11/20 Na 132, Cl 96, glucose 444 , POC 167-368, A1c 8.9 Nutritional Hx/Data Height 1.5 m Height (Calculated Centimeters) 149.9 Current Weight (lbs) 54.431 kg Weight (Calculated Kilograms) 54.4 Weight (Calculated Grams) 83389.1 [place] Body Weight 98 Body Mass Index (BMI) 24.2 Weight Status Approriate GI Symptoms GI Symptoms None Last BM not indicated Difficult in: None Skin Integrity/Comment: intact Estimated Nutritional Goals BEE in Kcals: Using Current wt Calories/Kcals/Kg 25-30 Kcals Calculated 0152-6436 Protein: Using Current wt Protein g/k-1.2 Protein Calculated 55-66 Fluid: ml 1375-1650ml (1ml/kcal) Nutritional Problem 1. Problem Problem altered nutrition related labs Etiology hx of Dm Signs/Symptoms: glucose 444, POC 167-368, A1c 8.9 Malnutrition Alert Is there a minimum of two criteria No selected? Query Text:Check all the applicable criteria. A minimum of two criteria are recommended for diagnosis of either severe or non-severe malnutrition. Malnutrition Related to Morbid Obesity Malnutrition related to morbid obesity No Intervention/Recommendation Comments 1. Continue with [facility] diet as ordered. 2. Monitor PO intake, wt, labs and skin integrity 3. F/U as moderate risk in 3-5 days, 11/24-11/26 Expected Outcomes/Goals Expected Outcomes/Goals 1. PO intake to meet at least 75% of nutritional needs. 2. Wt stability, skin to remain intact, labs to approach WNL.
--- NOTE | 2017-12-03 19:30 | Discharge Summary ---
DATE OF DISCHARGE: 12/03/2017 AGE: 72. SEX: Female. PHYSICIAN: Dr. Ellington. FINAL DIAGNOSIS/PRIMARY DIAGNOSIS: Unspecified psychosis. SECONDARY DIAGNOSIS: Dementia, moderate to severe, with psychotic features. MEDICAL DIAGNOSES: Diabetes mellitus. Osteoarthritis. REASON FOR HOSPITALIZATION: The patient was admitted to the hospital because of confusion and increased agitation and irritability. HOSPITAL COURSE: The patient continued to be increasingly agitated and she also was confused. The patient also needed lots of redirection. She also was isolative and withdrawn and interacting minimally with others. She also was in irritable and angry mood and the plan was refusing to take her medications. The patient was started on Abilify 2 mg every day. Gradually, the patient's affect was brighter. The patient was less agitated and less irritable. She also was easier to redirect him. The patient was discharged from the hospital and the patient was accepted in [facility]. Physical exam of the patient was done and the patient was monitored closely. The patient has diabetes and also arthritis. AFTER DISCHARGE PLANS: The patient discharged from the hospital and went to [facility] with plans to continue her treatment there. EXPECTED OUTCOME AFTER DISCHARGE: Fair if the patient continues with taking her medications and with discharge plans. [facility]# [id number]
== END 2017-12-03 18:35 | DRG 885 ==
LOC: ER 15:45 → GERO 18:38
PROVIDERS: ADMIT Psychiatry & Neurology Psychiatry; ATTEND Psychiatry & Neurology Psychiatry
DX: F23 Brief psychotic disorder (principal); E11.00 Type 2 diabetes mellitus with hyperosmolarity without nonketotic hyperglycemic-hyperosmolar coma (NKHHC); F03.91 Unspecified dementia, unspecified severity, with behavioral disturbance; M19.90 Unspecified osteoarthritis, unspecified site; I10 Essential (primary) hypertension; E78.5 Hyperlipidemia, unspecified
CPT/HCPCS: 36415-UA; 70450-TC; 80053-TC; 80061-TC; 81001-TC; 82948-90; 83036-90; 84443-TC; 85025-TC; 86592-TC; 93005; 96374; J1200; J1630; J1815; J2060; J7030; Z7610